=== PATIENT | male | born 1945 | race Caucasian/White ===

== ENCOUNTER → 2017-05-18 | Outpatient (CLI) | payer OTHER | LOC: FIMAGING 15:06 | PROVIDERS: ATTEND Internal Medicine | DX: R60.9 Edema, unspecified (principal); L03.116 Cellulitis of left lower limb; M10.9 Gout, unspecified ==

== ENCOUNTER 2017-06-05 10:30 | Emergency (ER) | payer OTHER ==
[2017-06-05 10:38] VITALS: TEMP 98.1
--- NOTE | 2017-06-05 11:06 | EDPHY ---
H & P Stated Complaint: Bruising/swelling R calf;recent inpt @ [facility] for gout vs cellulitis Time Seen by Provider: 06/05/17 11:02 HPI/ROS: HPI: This is a 72-year-old male who presents with Chief Complaint: Right calf swelling Location: Right calf Quality: Swelling Duration: 3 days Signs and Symptoms: + redness, + bruising, No shortness of breath, no chest pain, + bilateral lower extremity swelling chronic Timing: Rapid onset Severity: Moderate Context: Patient complains of bruising and swelling in his right calf since . He reports that he was in physical therapy and started to feel right calf muscle spasm. He stopped therapy and the cramps stop but then he noted bruising and swelling in the area. He was recently admitted for 10 days to [facility] for right lower extremity gout versus cellulitis; he received IV antibiotics.; discharged June 03, 2017. At discharge he was given 7 days of prednisone taper. History atrial fibrillation on Eliquis. He was able to walk out of his apartment and into the car using a walker. Modifying Factors: Comment: ROS: Constitutional: No fever, no chills, no weight loss Eyes: No blurred vision Respiratory: No shortness of breath, no cough Cardiovascular: No chest pain Gastrointestinal: No nausea, no vomiting no diarrhea Genitourinary: No dysuria Extremities: No myalgias Neurologic: No weakness, no numbness Skin: No rashes Hematologic: + bruising, no bleeding Source: Patient Exam Limitations: No limitations - Personal History Current Tetanus Diphtheria and Acellular Pertussis (TDAP): Unsure - Medical/Surgical History Hx Cardiac Disease: Yes Other PMH: afib. gout. peripheral neuropathy - Social History Smoking Status: Former smoker - Physical Exam Exam: CONSTITUTIONAL: Pleasant talkative nontoxic and elderly white male, awake and alert, no obvious distress HEENT: Atraumatic and normocephalic, PERRL, EOMI. Tympanic membranes clear. . Oropharynx clear, no exudate and moist pink mucosa. Airway patent. No lymphadenopathy. No meningismus. Cardiovascular: Normal S1/S2, regular rate, irregular rhythm, without murmur rub or gallop. PULMONARY/CHEST: Symmetrical and nontender. Clear to auscultation bilaterally Good air movement. No accessory muscle usage. ABDOMEN: Soft, nondistended, nontender, no rebound, no guarding, no peritoneal signs, no masses or organomegaly. No CVAT. EXTREMITIES: 2/2 pulses, right calf ecchymosis/mild redness with positive right calf pain. 1+ pitting edema noted at both ankles. Hyperpigmentation noted at bilateral ankles. Right ankle dorsiflexion and plantar flexion intact. Achilles intact. Right knee full range of motion; no effusion. no deformities, no clubbing, no cyanosis. NEUROLOGICAL: no focal neuro deficits. GCS 15. SKIN: Warm and dry, no erythema. no rash. Good capillary refill. Constitutional: Initial Vital Signs Temperature (C) 36.7 C 06/05/17 10:36 Heart Rate 101 H 06/05/17 10:36 Respiratory Rate 18 06/05/17 10:36 Blood Pressure 116/78 06/05/17 10:36 O2 Sat (%) 95 06/05/17 10:36 Allergies/Adverse Reactions: amoxicillin [Amoxicillin] Allergy (Mild, Verified 06/05/17 10:33) Rash Home Medications: Medication Instructions Recorded Allopurinol [Allopurinol 100 MG 100 mg PO DAILY 06/05/17 (*)] Apixaban [Eliquis] 5 mg PO BID 06/05/17 Atorvastatin Calcium [Lipitor 10 10 mg PO DAILY 06/05/17 mg (*)] Colchicine [Colchicine (*)] 0.6 mg PO 06/05/17 Digoxin [Lanoxin 125 mcg (RX)] 125 mcg PO DAILY10 06/05/17 Furosemide [Lasix] 40 mg PO 06/05/17 Gabapentin [Neurontin 300 MG (*)] 300 mg PO HS 06/05/17 Losartan Potassium [Cozaar] 100 mg PO 06/05/17 Metoprolol Succinate Xr [Toprol Xl 100 mg PO DAILY 06/05/17 100 mg (*)] Potassium Chloride [Klor-Con] 20 meq PO 06/05/17 Tadalafil [Cialis] 20 mg PO 06/05/17 predniSONE [predniSONE TAPER] 20 mg PO 06/05/17 Medical Decision Making - Diagnostics Imaging Results: Imaging Impressions Extremity Venous Study 06/05/17 11:01 Impression: 1. No deep venous thrombosis right leg. 2. Right medial calf 15 x 5 cm complex fluid collection which may represent hematoma or complex phlegmon/early abscess. Findings and recommendations discussed with Emergency Department, ENZO Yusuf, at 1207 hours on June 05, 2017. Final report concurs with initial preliminary interpretation. ED Course/Re-evaluation: Right lower extremity ultrasound ordered to evaluate for DVT ER executive legal secretary will call [facility] to obtain records from last admission to review 1230: Called by Radiology and ultrasound shows no DVT; does show complex fluid collection of 15 x 5 cm likely hematoma. No signs of neurovascular compromise/tenting of skin/compartment syndrome/ extremities and joints examined above and below area of concern and are neurovascularly intact/cellulitis/ischemia. Patient already has a walker at home hand has politely declined crutches. He politely declined splinting of right lower leg to immobilize. Patient relates that he follows with orthopedic surgery Dr. Arnold and wishes to follow up with him. We did discuss the possibility of a gastrocnemius strain/tear or Achilles strain. He was advised nonweightbearing on the right lower extremity and wrap with an Linwood wrap to compress. Patient has an etiology of injury and is on Eliquis which would explain the hematoma. Differential Diagnosis: Differential diagnosis includes deep venous thrombosis, gastrocnemius tear, Achilles tendon rupture, cellulitis, hematoma, peripheral vascular disease. Departure - Departure Disposition: Home, Routine, Self-Care Clinical Impression: Leg hematoma Qualifiers: Encounter type: initial encounter Laterality: right Qualified Code(s): S80.11XA - Contusion of right lower leg, initial encounter Condition: Good Instructions: Hematoma (ED) Additional Instructions: Please limit use of right lower extremity; observe nonweightbearing status; use crutches/walker, apply Linwood wrap to compress the area of concern. Keep follow-up appointment with primary care provider on Wednesday. Call orthopedist, Dr. Arnold, Wednesday for close follow-up appointment this week. Referrals: Marsha Meza MD [Primary Care Provider] - 2-3 days without fail (Go to appointment as previously scheduled on Wednesday)
[2017-06-05 13:06] VITALS: BP 120/81; PULSE 98; RESP 16; O2SAT 98
== END 2017-06-05 13:05 | disposition home or self-care (01) ==
DX: M79.81 Nontraumatic hematoma of soft tissue (principal); Z87.891 Personal history of nicotine dependence

== ENCOUNTER 2017-06-18 10:19 | Inpatient (IN) | payer OTHER ==
[2017-06-18] MEDS ORDERED: VANCOMYCIN HCL/NORMAL SALINE 250 ML IV ONE (12:00)
[2017-06-18] MEDS ORDERED: fentaNYL 100 MCG/2 ML INJ IVP ONE (12:02)
[2017-06-18] MEDS ORDERED: ONDANSETRON 4 MG/2 ML VIAL IVP ONE (12:02)
[2017-06-18 12:11] LABS: % IMMATURE GRANULYOCYTES 0.7 % (0.0-1.1); ABSOLUTE IMMATURE GRANULOCYTES 0.11 10^3/uL (0.00-0.10); ADD DIFF? NO; ADD MORPH? NO; ADD SCAN? NO; ATYPICAL LYMPHOCYTE FLAG 0 (0-99); FRAGMENT RBC FLAG 0 (0-99); HEMATOCRIT 36.8 % (40.0-51.0); HEMOGLOBIN 12.1 g/dL (13.7-17.5); LEFT SHIFT FLG 0 (0-99); LIPEMIA HEMOLYSIS FLAG 80 (0-99); MEAN CELL HEMOGLOBIN 30.6 pg (27.9-34.1); MEAN CELL HEMOGLOBIN CONCENTR. 32.9 g/dL (32.4-36.7); MEAN CELL VOLUME 93.2 fL (81.5-99.8); MEAN PLATELET VOLUME 9.3 fL (8.7-11.7); PLATELET CLUMPS FLAG 0 (0-99); PLATELET COUNT 241 10^3/uL (150-400); RED BLOOD CELL COUNT 3.95 10^6/uL (4.40-6.38); RED CELL DISTRIBUTION WIDTH 13.9 % (11.5-15.2)
[2017-06-18 12:18] LABS: ANION GAP 14 mEq/L (8-16); CALCIUM 10.7 mg/dL (8.5-10.4); CARBON DIOXIDE 23 mEq/l (22-31); CHLORIDE 97 mEq/L (97-110); CREATININE 1.2 mg/dL (0.7-1.3); GLOMERULAR FILTRATION RATE 60; GLUCOSE 113 mg/dL (70-100); POTASSIUM 4.6 mEq/L (3.5-5.2); SODIUM 134 mEq/L (134-144)
--- NOTE | 2017-06-18 12:20 | EDPHY ---
H & P Time Seen by Provider: 06/18/17 11:16 HPI/ROS: CHIEF COMPLAINT: Leg down, "gout" HISTORY OF PRESENT ILLNESS: The patient is a 72-year-old male with a history of peripheral neuropathy who presents to the emergency department ongoing bilateral lower extremity pain. Right is worse than his left. Patient states his symptoms started about 4 weeks ago. He has seen his primary care physician multiple times. He was ultimately diagnosed with gout. He has had an ultrasound of his right lower extremity which was negative. Patient states he has increasing redness and pain. He does not noted fever or chills. No recent trauma. REVIEW OF SYSTEMS: My complete review of systems is negative except as mentioned in the HPI. Past Medical/Surgical History: Atrial fibrillation, gout, peripheral neuropathy Smoking Status: Former smoker Physical Exam: 36.7, 102/80, 106, 16, 95% on room air GENERAL: W mild acute pain distress, alert. HEENT: Eyes normal to inspection, normal pharynx, no signs of dehydration. NECK: No thyromegaly, no lymphadenopathy, supple. RESPIRATORY: Clear to auscultation bilaterally, no rales, rhonchi or wheezing. CVS: Regular rate and rhythm, no rubs, murmurs, or gallops. ABDOMEN: Soft, nontender, nondistended, no organomegaly. BACK: Normal to inspection, no CVA tenderness. SKIN: Normal color, no rash, warm, dry. No pallor. EXTREMITIES: The patient has a swollen right lower extremity. It is tender to touch. It is fairly tense. There is erythema extending to the upper calf. Patient's left lower extremity has a small patch of redness under the medial malleolus. NEURO/PSYCH: Alert and oriented, normal mood and affect, normal motor sensory exam. Constitutional: Initial Vital Signs Temperature (C) 36.7 C 06/18/17 10:19 Heart Rate 106 H 06/18/17 10:19 Respiratory Rate 16 06/18/17 10:19 Blood Pressure 102/80 06/18/17 10:19 O2 Sat (%) 95 06/18/17 10:19 O2 Delivery Mode Room Air Allergies/Adverse Reactions: amoxicillin [Amoxicillin] Allergy (Mild, Verified 06/05/17 10:33) Rash Penicillins Allergy (Verified 06/18/17 14:19) Rash Home Medications: Medication Instructions Recorded Allopurinol [Allopurinol 100 MG 100 mg PO DAILY 06/05/17 (*)] Atorvastatin Calcium [Lipitor 10 10 mg PO HS 06/05/17 mg (*)] Furosemide [Lasix] 40 mg PO Q2D@09 06/05/17 Gabapentin [Neurontin 300 MG (*)] 300 mg PO HS 06/05/17 Losartan Potassium [Cozaar] 100 mg PO DAILY 06/05/17 Metoprolol Succinate Xr [Toprol Xl 100 mg PO DAILY 06/05/17 100 mg (*)] Tadalafil [Cialis] 20 mg PO Q48H 06/05/17 Acetaminophen [Tylenol ES 500 mg 1,000 mg PO HS 06/18/17 (*)] Cephalexin [Keflex (*)] 500 mg PO QID 06/18/17 Colchicine [Colchicine (*)] 0.6 mg PO DAILY PRN 06/18/17 Digoxin [Lanoxin 250 mcg (RX)] 250 mcg PO MOTUWETHFRSA@09 06/18/17 Herbals/Supplements -Info Only 1 ea PO DAILY 06/18/17 Multivitamins [Multivitamin (*)] 1 each PO DAILY 06/18/17 [place]-3 Fatty Acids [Fish Oil 1000 1,000 mg PO DAILY 06/18/17 mg (*)] traMADol [Ultram 50 mg (*)] 50 mg PO Q4 PRN 06/18/17 Medical Decision Making - Diagnostics Imaging Results: Imaging Impressions Extremity Venous Study 06/18/17 12:04 Impression: 1. There is no sonographic evidence of deep or superficial vein thrombosis in the right lower extremity. 2. There has been an interval increase in the size of the previously-noted hematoma, although it appears more seromatous (liquefied), with some minimal debris (superimposed infection is not excluded). Findings were discussed with MARIVEL ALVES MD at 13:08, on 06/18/2017. ED Course/Re-evaluation: In the emergency department I discussed the plan with the patient. I answered all of his questions. Based on the redness and swelling in the leg an IV was placed. Laboratory studies including cultures were obtained. An ultrasound of the right lower extremity was ordered. The patient was given Rocephin 1 g IV and vancomycin 1 g IV after cultures were drawn. [place] [address]. Patient's lactate was normal. I discussed the case with the hospitalist service. Dr. Ahmadi will admit. Ultrasound: Please refer the dictated report. Patient has a large fluid collection. This is increased in size from his previous ultrasound. I discussed the case with Dr. Hanks from General surgery. He will consult on the patient to evaluate for possible abscess formation. Differential Diagnosis: My differential includes but is not limited to cellulitis, abscess, DVT, vascular occlusion, bacteremia, sepsis - Data Points Laboratory Results: Laboratory Results 06/18/17 10:20 06/18/17 10:20 06/18/17 06/18/17 06/18/17 11:53 10:20 10:20 WBC 15.43 10^3/uL H 10^3/uL (3.80-9.50) RBC 3.95 10^6/uL L 10^6/uL (4.40-6.38) Hgb 12.1 g/dL L g/dL (13.7-17.5) Hct 36.8 % L % (40.0-51.0) MCV 93.2 fL fL (81.5-99.8) MCH 30.6 pg pg (27.9-34.1) MCHC 32.9 g/dL g/dL (32.4-36.7) RDW 13.9 % % (11.5-15.2) Plt Count 241 10^3/uL 10^3/uL (150-400) MPV 9.3 fL fL (8.7-11.7) Neut % (Auto) 84.2 % H % (39.3-74.2) Lymph % (Auto) 6.4 % L % (15.0-45.0) [place] % (Auto) 7.6 % % (4.5-13.0) Eos % (Auto) 0.8 % % (0.6-7.6) Baso % (Auto) 0.3 % % (0.3-1.7) Nucleat RBC Rel Count 0.0 % % (0.0-0.2) Absolute Neuts (auto) 12.99 10^3/uL H 10^3/uL (1.70-6.50) Absolute Lymphs (auto) 0.99 10^3/uL L 10^3/uL (1.00-3.00) Absolute Monos (auto) 1.17 10^3/uL H 10^3/uL (0.30-0.80) Absolute Eos (auto) 0.13 10^3/uL 10^3/uL (0.03-0.40) Absolute Basos (auto) 0.04 10^3/uL 10^3/uL (0.02-0.10) Absolute Nucleated RBC 0.00 10^3/uL 10^3/uL (0-0.01) Immature Gran % 0.7 % % (0.0-1.1) Immature Gran # 0.11 10^3/uL H 10^3/uL (0.00-0.10) VBG Lactic Acid 1.4 mmol/L mmol/L (0.7-2.1) Sodium 134 mEq/L mEq/L (134-144) Potassium 4.6 mEq/L mEq/L (3.5-5.2) Chloride 97 mEq/L mEq/L (97-110) Carbon Dioxide 23 mEq/l mEq/l (22-31) Anion Gap 14 mEq/L mEq/L (8-16) BUN 27 mg/dL H mg/dL (7-23) Creatinine 1.2 mg/dL mg/dL (0.7-1.3) Estimated GFR 60 Glucose 113 mg/dL H mg/dL (70-100) Calcium 10.7 mg/dL H mg/dL (8.5-10.4) Phosphorus 3.0 mg/dL mg/dL (2.5-4.5) Medications Given: Discontinued Medications Fentanyl (Sublimaze) 100 mcg IVP EDNOW ONE Stop: 06/18/17 12:03 Last Admin: 06/18/17 12:18 Dose: 100 mcg Ceftriaxone Sodium/Dextrose (Rocephin 1 Gm (Premix)) 50 mls @ 100 mls/hr IV EDNOW ONE PRN Reason: Protocol Stop: 06/18/17 12:29 Last Admin: 06/18/17 12:17 Dose: 50 mls Vancomycin/Sodium Chloride (Vancomycin 1 Gm (Premix)) 250 mls @ 250 mls/hr IV EDNOW ONE PRN Reason: Protocol Stop: 06/18/17 12:59 Last Admin: 06/18/17 12:56 Dose: 250 mls Ondansetron HCl (Zofran) 4 mg IVP EDNOW ONE Stop: 06/18/17 12:03 Last Admin: 06/18/17 12:19 Dose: 4 mg Departure - Departure Disposition: [facility] Acute Clinical Impression: Cellulitis Qualifiers: Site of cellulitis: extremity Site of cellulitis of extremity: lower extremity Laterality: right Qualified Code(s): L03.115 - Cellulitis of right lower limb Condition: Good
[2017-06-18] MEDS ORDERED: ONDANSETRON 4 MG/2 ML VIAL IVP PRN (15:57)
[2017-06-18] MEDS ORDERED: oxyCODONE IR 5 MG TAB PO PRN (15:57)
[2017-06-18] MEDS ORDERED: ONDANSETRON DISINTEGRATING 4 MG TAB PO PRN (15:57)
--- NOTE | 2017-06-18 16:06 | GCON ---
[f rep st] CONSULTATION REFERRING PHYSICIAN: I have been asked to see the patient in consultation by in the emergency department in regard to right leg cellulitis, possible abscess. HISTORY OF PRESENT ILLNESS: This 72-year-old male underwent some type of trauma to the right leg 3 w eeks ago while he was on Eliquis. He developed a hematoma, which underwent an ultrasound test at [facility] facility. He now presents with increasing pain and redness in the right lower extremity, as well a s a small patch along the left medial malleolus, actually fairly distant from the area in the calf wh ere he apparently had his hematoma in the past. An ultrasound was done to rule out DVT, and incident ally noted was a 10 x 5 cm area of fluid, which was felt to be liquefaction of the previous hematoma, and the question was raised as to whether this could be infected fluid driving the cellulitis, or un related fluid. HISTORY: The patient is a very poor historian in regard to medications, chronology of his trauma, et c., although he states that there was a bigger hematoma in this area 3 weeks ago, which has steadily improved. PHYSICAL EXAM: Elderly male, ecchymosis in the right medial thigh and swelling of the right posterio r calf without erythema. All the erythema is more distal and centered more from the ankle up. Palpa tion of the posterior calf shows 1 area, which is fairly soft, which is assumed to be the area of flu id collection. The skin was prepped with soap, and a 21-gauge needle aspirated old blood. This was sent for Gram st ain and culture. It has a benign appearance. However, obviously there could be bacteria within. ASSESSMENT: I feel the fluid collection in the posterior calf, which is fairly nontender and shrinki ng in size, is unlikely to be driving the erythema, which is not centered about this area. We will a wait the Gram stain and culture results, but I do not think drainage of this area is necessary. The patient also states he stopped his Eliquis a day or 2 ago. /[id number]/MODL
[2017-06-18] MEDS: Tadalafil [Cialis] 20 MG PO SCH (16:45)
--- NOTE | 2017-06-18 16:50 | GHP ---
[f rep st] HISTORY AND PHYSICAL DATE OF ADMISSION: 06/18/2017 CHIEF COMPLAINT: Right lower extremity swelling, pain, and redness. HISTORY OF PRESENT ILLNESS: This is a 72-year-old male with a history of gout, who presents with rig ht lower extremity swelling and redness. He was discharged from [place] [facility] about 2 weeks ago where he was treated with a gout attack with prednisone, colchicine, and allopurinol. He says that his gout a ttack had initially resolved. Sometime after this, he noticed that his right leg became very swollen . He is on Eliquis. He has seen his orthopedic surgeon, primary care physician, as well as his card iologist in the meantime. He had an ultrasound of his leg done 2 weeks ago, which did show a complex fluid collection at that time. He is unsure if he has been on antibiotics though Keflex is on his m edication list. He notes that he has pain and redness. It is unclear if the redness is getting bett er or worse. He actually tells me it has been getting better. He has not had any real fevers at [facility]. He had been told by his inspector materials and processes to stop Eliquis in the interim as there was concern that thi s was a hematoma. He presents today with worsening pain in his leg. PAST MEDICAL/SURGICAL HISTORY: 1. Atrial fibrillation. 2. Gout. 3. Peripheral neuropathy. MEDICATIONS: Please see medication reconciliation. ALLERGIES: Amoxicillin and penicillin. FAMILY HISTORY: Reviewed and noncontributory. SOCIAL HISTORY: He does not smoke. REVIEW OF SYSTEMS: A 10-point review of systems is conducted and is negative except per HPI. PHYSICAL EXAMINATION: VITAL SIGNS: Blood pressure is 130/70, heart rate has been between 106 to 116 , respiration rate 16, saturating at 92% on room air. Temperature max is 37.5. GENERAL: The patien jayden is a pleasant man who appears somewhat uncomfortable. HEENT: Shows him to be normocephalic, atrau matic. CARDIOVASCULAR: Regular rate and rhythm. No murmurs, rubs, or gallops. PULMONARY: Lungs c lear to auscultation bilaterally. ABDOMEN: Soft, nontender, nondistended. SKIN: No rash. : Ex am shows no Wall. NEUROLOGIC: Shows him to be alert and oriented x3, moving all extremities. PSYC HIATRIC: Exam shows normal mood and affect. EXTREMITIES: Shows right lower extremity to be signifi cantly edematous and erythematous. It is warm to the touch. The erythema is mostly over the anterio r lindquist. It does have a little bit of fluctuance surrounding the calf. LABORATORY DATA: CBC shows a white count of 15.43, hemoglobin is 12, platelets are 241. Lactate is 1.4. BUN is 27, creatinine 1.2. Calcium 10.7. DATA: 1. I discussed this with Dr. Henriquez. 2. I reviewed his extremity venous ultrasound that shows an increase in the size of fluid collection in his right calf. He does have some minimal debris. IMPRESSION/PLAN: This is a 72-year-old man who presents with cellulitis, possible abscess. 1. Right lower extremity cellulitis/abscess: Dr. Henriquez has been consulted. He did a bedside as piration of this fluid. This will be sent off for Gram stain and culture. In the interim, he will b e treated for cellulitis. This fluid did not appear purulent, thus I will treat him for a non-methic illin-resistant Staph aureus soft tissue infection with Ancef. We will follow his clinical course cl osely. I have marked the site. I recommend keeping his leg elevated. 2. Atrial fibrillation: Currently rate controlled. We will continue his metoprolol. I have held h is Eliquis. We will also continue digoxin. 3. Gout: Unsure if he is currently having a flare. We will continue his colchicine and allopurinol now. 4. Hypertension: We will hold his Cozaar. 5. Code status: Full, but would not want prolonged measures. 6. Venous thromboembolism risk is moderate but would not want to put SCDs on that leg and would not want to give him Lovenox, given that likely had the hematoma. /[id number]/MODL
[2017-06-18] MEDS: GABAPENTIN 300 MG CAP PO SCH (23:39)
[2017-06-18] MEDS: ACETAMINOPHEN 500 MG TAB PO SCH (23:40)
[2017-06-18] MEDS: ATORVASTATIN CALCIUM 10 MG TAB PO SCH (23:40)
[2017-06-19 05:19] LABS: % IMMATURE GRANULYOCYTES 0.5 % (0.0-1.1); ABSOLUTE IMMATURE GRANULOCYTES 0.06 10^3/uL (0.00-0.10); ADD DIFF? NO; ADD MORPH? NO; ADD SCAN? NO; ATYPICAL LYMPHOCYTE FLAG 20 (0-99); FRAGMENT RBC FLAG 0 (0-99); HEMATOCRIT 33.4 % (40.0-51.0); HEMOGLOBIN 10.6 g/dL (13.7-17.5); LEFT SHIFT FLG 0 (0-99); LIPEMIA HEMOLYSIS FLAG 80 (0-99); MEAN CELL HEMOGLOBIN 29.8 pg (27.9-34.1); MEAN CELL HEMOGLOBIN CONCENTR. 31.7 g/dL (32.4-36.7); MEAN CELL VOLUME 93.8 fL (81.5-99.8); MEAN PLATELET VOLUME 9.2 fL (8.7-11.7); PLATELET CLUMPS FLAG 0 (0-99); PLATELET COUNT 194 10^3/uL (150-400); RED BLOOD CELL COUNT 3.56 10^6/uL (4.40-6.38); RED CELL DISTRIBUTION WIDTH 14.1 % (11.5-15.2)
[2017-06-19 05:35] LABS: ALANINE AMINOTRANSFERASE 40 IU/L (21-72); ALBUMIN 2.4 g/dL (3.5-5.0); ALKALINE PHOSPHATASE 99 IU/L (38-126); ANION GAP 9 mEq/L (8-16); ASPARTATE AMINOTRANSFERASE 30 IU/L (17-59); BILIRUBIN,TOTAL 1.4 mg/dL (0.1-1.4); CALCIUM 10.4 mg/dL (8.5-10.4); CARBON DIOXIDE 23 mEq/l (22-31); CHLORIDE 101 mEq/L (97-110); CREATININE 1.1 mg/dL (0.7-1.3); GLOMERULAR FILTRATION RATE > 60; GLUCOSE 113 mg/dL (70-100); POTASSIUM 4.3 mEq/L (3.5-5.2); SODIUM 133 mEq/L (134-144); TOTAL PROTEIN 5.4 g/dL (6.3-8.2)
[2017-06-19] MEDS: OMEGA-3 FATTY ACIDS 1,000 MG CAP PO SCH (09:24)
[2017-06-19] MEDS: DIGOXIN 250 MCG TAB PO SCH (09:25)
[2017-06-19] MEDS: ALLOPURINOL 100 MG TAB PO SCH (09:25)
[2017-06-19] MEDS: METOPROLOL SUCCINATE XR 100 MG TAB PO SCH (09:25)
[2017-06-19] MEDS: ACETAMINOPHEN 325 MG TAB PO PRN ×2 (11:39→16:35)
[2017-06-19] MEDS ORDERED: NS 500 ML IV ONE (13:38)
[2017-06-19] MEDS ORDERED: NS 1,000 ML IV SCH (13:45)
--- NOTE | 2017-06-19 13:47 | HOSPPROG ---
Hospitalist Progress Note Assessment/Plan: # RLE cellulitis - will treat with ancef and follow clinical course - slightly improved today # RLE hematoma - culture from this negative so far - follow; holding eliquis # acute gout, L knee - will treat with prednisone - doubt septic arthritis since this knee was aspirated about 2 weeks ago at [place] and showed MSU crystals - cont colchicine and allopurinol # tachycardia - may be related to borderline fever - will run IVF for the next 24 hours - hold lasix # a-fib - cont metop, digoxin; hold eliquis Subjective: L knee feels worse; less pain over RLE Objective: Vital Signs Temp Pulse Resp BP Pulse Ox 37.7 C 113 H 18 119/76 95 06/19/17 11:54 06/19/17 11:54 06/19/17 11:54 06/19/17 11:54 06/19/17 11:54 Microbiology 06/18/17 15:40 Gram Stain - Final Leg - Swab Laboratory Results 06/19/17 04:54 06/19/17 04:50 06/18/17 06/19/17 06/20/17 05:59 05:59 05:59 Intake Total 440 Output Total 475 Balance -35 high risk given the extent of his cellulitis ICD10 Worksheet Patient Problems: Problems Problem Status Onset Cellulitis Acute
[2017-06-19] MEDS: predniSONE 20 MG TAB PO SCH (14:09)
--- NOTE | 2017-06-19 14:43 | ASMTCMCOM ---
CM Note CM Note Notes: Pt. is a 72-year-old man admitted w/ R lower leg cellulitis. Hx. gout, Afib, and peripheral neuropathy. Pt. on IV antibiotics. Pt. appears to live alone, daughter listed in contacts. CM to follow for d/c needs. Date Signed: 06/19/2017 02:42 PM Electronically Signed By:Jocy Smith LCSW
[2017-06-19] MEDS: traMADol 50 MG TAB PO PRN (16:34)
[2017-06-19] MEDS: ATORVASTATIN CALCIUM 10 MG TAB PO SCH (20:19)
[2017-06-19] MEDS: ACETAMINOPHEN 500 MG TAB PO SCH (20:19)
[2017-06-19] MEDS: GABAPENTIN 300 MG CAP PO SCH (20:19)
[2017-06-20 05:33] LABS: ABSOLUTE IMMATURE GRANULOCYTES 0.11 10^3/uL (0.00-0.10); ADD DIFF? NO; ADD MORPH? NO; ADD SCAN? NO; ATYPICAL LYMPHOCYTE FLAG 20 (0-99); FRAGMENT RBC FLAG 0 (0-99); HEMATOCRIT 31.5 % (40.0-51.0); LEFT SHIFT FLG 0 (0-99); LIPEMIA HEMOLYSIS FLAG 80 (0-99); MEAN CELL HEMOGLOBIN 29.8 pg (27.9-34.1); MEAN CELL HEMOGLOBIN CONCENTR. 31.7 g/dL (32.4-36.7); MEAN CELL VOLUME 93.8 fL (81.5-99.8); MEAN PLATELET VOLUME 9.3 fL (8.7-11.7); PLATELET CLUMPS FLAG 0 (0-99); PLATELET COUNT 197 10^3/uL (150-400); RED BLOOD CELL COUNT 3.36 10^6/uL (4.40-6.38); RED CELL DISTRIBUTION WIDTH 13.5 % (11.5-15.2)
[2017-06-20 06:03] LABS: ANION GAP 8 mEq/L (8-16); CALCIUM 9.7 mg/dL (8.5-10.4); CARBON DIOXIDE 26 mEq/l (22-31); CHLORIDE 104 mEq/L (97-110); CREATININE 0.8 mg/dL (0.7-1.3); GLOMERULAR FILTRATION RATE > 60; GLUCOSE 239 mg/dL (70-100); POTASSIUM 5.5 mEq/L (3.5-5.2); SODIUM 138 mEq/L (134-144)
[2017-06-20] MEDS ORDERED: FUROSEMIDE 40 MG TAB PO SCH (09:00)
[2017-06-20] MEDS: predniSONE 20 MG TAB PO SCH (09:07)
[2017-06-20] MEDS: OMEGA-3 FATTY ACIDS 1,000 MG CAP PO SCH (09:08)
[2017-06-20] MEDS: METOPROLOL SUCCINATE XR 100 MG TAB PO SCH (09:08)
[2017-06-20] MEDS: ALLOPURINOL 100 MG TAB PO SCH (09:08)
[2017-06-20] MEDS: ACETAMINOPHEN 325 MG TAB PO PRN (09:08)
--- NOTE | 2017-06-20 12:29 | HOSPPROG ---
Hospitalist Progress Note Assessment/Plan: # RLE cellulitis - will treat with ancef and follow clinical course - improving, still needs IV abx # RLE hematoma - culture from this negative so far - follow; holding eliquis # L knee effusion - likely gout but still extremely painful - cont pred, colchicine and allopurinol - aspirate knee today, send for GS/cx and crystals # tachycardia - better after fluids - hold lasix, stop fluids # a-fib - cont metop, digoxin; hold eliquis Subjective: R leg less painful; L knee still very painful Objective: Vital Signs Temp Pulse Resp BP Pulse Ox 36.6 C 83 18 135/65 H 96 06/20/17 11:47 06/20/17 11:47 06/20/17 11:47 06/20/17 11:47 06/20/17 11:47 Laboratory Results 06/20/17 05:04 06/20/17 05:04 06/19/17 06/20/17 06/21/17 05:59 05:59 05:59 Intake Total 275 Output Total 750 Balance -475 - Physical Exam Constitutional: no apparent distress, appears nourished Cardiovascular: regular rate and rhythym, no murmur, rub, or gallop Respiratory: no respiratory distress, no rales or rhonchi, clear to auscultation Gastrointestinal: normoactive bowel sounds, soft, non-tender abdomen, no palpable masses Musculoskeletal: other (RLE with decreasing erythema overall; L knee with ongoing effusion) ICD10 Worksheet Patient Problems: Problems Problem Status Onset Cellulitis Acute
[2017-06-20] MEDS ORDERED: LIDOCAINE 1% 300 MG/30 ML SDV ONE (15:13)
--- NOTE | 2017-06-20 15:25 | ASMTCMCOM ---
CM Note CM Note Notes: Chart reviewed, per PT and OT, SNF/Rehab recommended, Met with patient to discuss dc poc. He understands he may need rehab when he is medically able to discharge and is agreeable to rehab. Patient provided options within [place] and surrounding area. He would like to go to [facility] in [place]. Referal to [facility] made awaiting response. CM will follow. Date Signed: 06/20/2017 03:24 PM Electronically Signed By:Paulina Allison RN
[2017-06-20] MEDS: Tadalafil [Cialis] 20 MG PO SCH (16:54)
[2017-06-20] MEDS: ATORVASTATIN CALCIUM 10 MG TAB PO SCH (20:05)
[2017-06-20] MEDS: GABAPENTIN 300 MG CAP PO SCH (20:05)
[2017-06-20] MEDS: ACETAMINOPHEN 500 MG TAB PO SCH (20:05)
[2017-06-21 05:27] LABS: % IMMATURE GRANULYOCYTES 1.1 % (0.0-1.1); ABSOLUTE IMMATURE GRANULOCYTES 0.16 10^3/uL (0.00-0.10); ADD DIFF? NO; ADD MORPH? YES; ADD SCAN? NO; ATYPICAL LYMPHOCYTE FLAG 20 (0-99); FRAGMENT RBC FLAG 0 (0-99); HEMATOCRIT 21.9 % (40.0-51.0); LEFT SHIFT FLG 0 (0-99); LIPEMIA HEMOLYSIS FLAG 80 (0-99); MEAN CELL HEMOGLOBIN 29.5 pg (27.9-34.1); MEAN CELL HEMOGLOBIN CONCENTR. 31.5 g/dL (32.4-36.7); MEAN CELL VOLUME 93.6 fL (81.5-99.8); MEAN PLATELET VOLUME 9.9 fL (8.7-11.7); PLATELET CLUMPS FLAG 0 (0-99); PLATELET COUNT 266 10^3/uL (150-400); RED BLOOD CELL COUNT 2.34 10^6/uL (4.40-6.38); RED CELL DISTRIBUTION WIDTH 13.5 % (11.5-15.2)
[2017-06-21 05:29] LABS: HEMOGLOBIN 6.9 g/dL (13.7-17.5)
[2017-06-21 05:43] LABS: ANION GAP 9 mEq/L (8-16); CALCIUM 9.9 mg/dL (8.5-10.4); CARBON DIOXIDE 25 mEq/l (22-31); CHLORIDE 104 mEq/L (97-110); CREATININE 0.8 mg/dL (0.7-1.3); GLOMERULAR FILTRATION RATE > 60; GLUCOSE 203 mg/dL (70-100); POTASSIUM 4.5 mEq/L (3.5-5.2); SODIUM 138 mEq/L (134-144)
[2017-06-21 05:56] LABS: PLATELET ESTIMATE ADEQUATE (ADEQ); POLYCHROMASIA 1+
[2017-06-21] MEDS: predniSONE 20 MG TAB PO SCH (08:00)
[2017-06-21] MEDS: METOPROLOL SUCCINATE XR 100 MG TAB PO SCH (08:00)
[2017-06-21] MEDS: DIGOXIN 250 MCG TAB PO SCH (08:00)
[2017-06-21] MEDS: ALLOPURINOL 100 MG TAB PO SCH (08:00)
[2017-06-21] MEDS: OMEGA-3 FATTY ACIDS 1,000 MG CAP PO SCH (08:01)
[2017-06-21] MEDS ORDERED: ENOXAPARIN 40 MG/0.4 ML SYR SC SCH (09:00)
[2017-06-21] MEDS: ACETAMINOPHEN 325 MG TAB PO PRN (11:41)
[2017-06-21 12:02] LABS: HEMATOCRIT 33.1 % (40.0-51.0); HEMOGLOBIN 10.7 g/dL (13.7-17.5)
--- NOTE | 2017-06-21 13:46 | ASMTCMCOM ---
CM Note CM Note Notes: [facility] will not have a bed until the end of this week. CM recommended that pt selects another SNF facility as a safety net. Pt would like CM to make a referral to [facility]. CM faxed referral. CM provided pt information on [facility] as requested. Date Signed: 06/21/2017 01:45 PM Electronically Signed By:SUZIE Mcdowell
--- NOTE | 2017-06-21 14:37 | HOSPPROG ---
Hospitalist Progress Note Assessment/Plan: 72 y male with c/o rle redness. First encounter, chart reviewed. # RLE cellulitis - will treat with ancef and follow clinical course - improving, still needs IV abx -possibly 1-2 more days # RLE hematoma - culture from this negative so far - follow; holding eliquis -repeat US unchanged # L knee effusion - likely gout but still extremely painful - cont pred, colchicine and allopurinol - aspirated knee, sent for GS/cx, no crystals # tachycardia - better after fluids - hold lasix, stop fluids -follow # a-fib - cont metop, digoxin; hold eliquis # anemia -false lab reading -repeat labs stable -held lovenox, restart soon #Dispo - will need snf -1-2 more days of therapy then po abx -d/w CM Subjective: Feeling tired today. Slept well last night. Still having some pain. Objective: Vital Signs Temp Pulse Resp BP Pulse Ox 36.5 C 88 18 153/102 H 96 06/21/17 07:43 06/21/17 12:08 06/21/17 12:08 06/21/17 12:08 06/21/17 12:08 Microbiology 06/20/17 14:00 Gram Stain - Final Knee - Aspirate Laboratory Results 06/21/17 11:50 06/21/17 04:40 06/20/17 06/21/17 06/22/17 05:59 05:59 05:59 Intake Total 275 Output Total 750 250 Balance -475 -250 - Physical Exam Constitutional: appears nourished, chronically ill appearing, uncomfortable Eyes: PERRL, anicteric sclera, EOMI Ears, Nose, Mouth, Throat: moist mucous membranes, hearing normal, ears appear normal Cardiovascular: regular rate and rhythym, No JVD, No edema Respiratory: no respiratory distress, no rales or rhonchi, reduced air movement Gastrointestinal: No tenderness, No ascites, No guarding Skin: warm, no induration, erythema Musculoskeletal: no joint effusions, pain with ROM, generalized weakness Neurologic: AAOx3 Psychiatric: interacting appropriately, not anxious, not encephalopathic, thought process linear ICD10 Worksheet Patient Problems: Problems Problem Status Onset Cellulitis Acute
[2017-06-21] MEDS: GABAPENTIN 300 MG CAP PO SCH (20:15)
[2017-06-21] MEDS: ACETAMINOPHEN 500 MG TAB PO SCH (20:15)
[2017-06-21] MEDS: ATORVASTATIN CALCIUM 10 MG TAB PO SCH (20:15)
[2017-06-22] MEDS: DIGOXIN 250 MCG TAB PO SCH (09:29)
[2017-06-22] MEDS: predniSONE 20 MG TAB PO SCH (09:30)
[2017-06-22] MEDS: OMEGA-3 FATTY ACIDS 1,000 MG CAP PO SCH (09:30)
[2017-06-22] MEDS: ALLOPURINOL 100 MG TAB PO SCH (09:30)
[2017-06-22] MEDS: METOPROLOL SUCCINATE XR 100 MG TAB PO SCH (09:30)
[2017-06-22] MEDS: traMADol 50 MG TAB PO PRN ×3 (09:36→21:51)
[2017-06-22] MEDS: COLCHICINE 0.6 MG CAP/TAB PO PRN (09:40)
--- NOTE | 2017-06-22 10:35 | HOSPPROG ---
Hospitalist Progress Note Assessment/Plan: 72 y male with c/o rle redness. First encounter, chart reviewed. # RLE cellulitis - will treat with ancef and follow clinical course - improving, still needs IV abx # RLE hematoma - culture from this negative so far - follow; holding eliquis -repeat US unchanged -ordered ice prn # L knee effusion/supratellar - gout but still extremely painful - cont pred, colchicine and allopurinol - aspirated knee, + crystals - per patient is worse/ will ask orthopedics to see (spoke with Dr Ventura) # tachycardia - none today - hold lasix, stop fluids -follow # a-fib - cont metop, digoxin; hold eliquis # anemia -false lab reading -repeat labs stable #dvt prophylaxis: LMWH on hold/ has a significant hematoma on right leg area #Dispo -need SNF -ask ortho to see to weigh in on left knee/ will not drain hematoma at this time/ should resolve w tme Subjective: Louis said he is having significant pain to his left knee/ right leg is not that painful. Objective: Vital Signs Temp Pulse Resp BP Pulse Ox 36.9 C 80 20 135/86 H 96 06/22/17 07:42 06/22/17 09:29 06/22/17 07:42 06/22/17 07:42 06/22/17 07:42 Microbiology 06/20/17 14:00 Gram Stain - Final Knee - Aspirate Laboratory Results 06/21/17 11:50 06/21/17 04:40 06/21/17 06/22/17 06/23/17 05:59 05:59 05:59 Intake Total 150 Output Total 1000 Balance -850 - Physical Exam Constitutional: uncomfortable Eyes: PERRL Ears, Nose, Mouth, Throat: hearing normal Cardiovascular: irregularly irregular Respiratory: no respiratory distress Skin: warm, other (left knee with palpable effusion/ right calf swollen/ right knee, r upper thigh area with significant ecchymosis) Musculoskeletal: muscular tenderness, generalized weakness Neurologic: AAOx3 Psychiatric: interacting appropriately ICD10 Worksheet Patient Problems: Problems Problem Status Onset Cellulitis Acute
[2017-06-22] MEDS: ACETAMINOPHEN 325 MG TAB PO PRN ×2 (12:01→16:13)
--- NOTE | 2017-06-22 12:13 | ASMTCMCOM ---
CM Note CM Note Notes: CM spoke w/ BLADIMIR Mckeon regarding d/c POC. CM spoke w/ Lois at [facility] and anticipates having a bed for pt when he is medically stable to d/c. Pt is agreeable to going to [facility]. Pt was declined at [facility] due to his insurance. CM to follow. Date Signed: 06/22/2017 12:12 PM Electronically Signed By:SUZIE Mcdowell
[2017-06-22] MEDS: Tadalafil [Cialis] 20 MG PO SCH (15:32)
[2017-06-22] MEDS: ATORVASTATIN CALCIUM 10 MG TAB PO SCH (21:51)
[2017-06-22] MEDS: GABAPENTIN 300 MG CAP PO SCH (21:52)
[2017-06-22] MEDS: ACETAMINOPHEN 500 MG TAB PO SCH (21:52)
--- NOTE | 2017-06-23 03:02 | GCON ---
[f rep st] CONSULTATION ORTHOPEDIC CONSULTATION DATE OF CONSULTATION: 06/22/2017 REASON FOR CONSULTATION: Left knee gout. HISTORY OF PRESENT ILLNESS: The patient is a pleasant 72-year-old male with a history of gout, who p resented to the emergency department on June 18 with warmth and swelling about the right lower e xtremity. I did have a fluid collection on an ultrasound for a DVT, which was aspirated, which was n egative for bacteria, and he is now being treated with cellulitis. He has also had left knee swellin g. This is the second attack of gout. He was initially treated with steroid, allopurinol, and colch icine. Initially got better, however, the left knee pain has resumed. He has been restarted on thos e medicines and he now reports today, this afternoon that his pain is finally starting to improve. PRIOR MEDICAL HISTORY: Atrial fibrillation, gout, peripheral neuropathy. MEDICATIONS: Please see attached med rec. ALLERGIES: Amoxicillin and penicillin. SOCIAL HISTORY: Occasional alcohol. He does not smoke. Lives here in town with his . REVIEW OF SYSTEMS: Other than right lower extremity warmth and swelling is unremarkable except for t he left knee pain and swelling as well. PHYSICAL EXAM: VITAL SIGNS: Today at the bedside, blood pressure is 121/77, heart rate is 95, respi ratory rate is 16, oxygen saturation is 94% on 2 L, temperature is 36.8. LABORATORY DATA: The aspirate from his knee showed 3+ polys, no organisms, positive for uric acid cr ystals. ASSESSMENT: Gout flare, left knee. PLAN: The patient and I spent 15 minutes [id number] time reviewing the aspiration results. His cl inical course, he is now starting to show some improvement this afternoon. He will continue current treatment for the gout. He will continue the home medications to try and suppress future gout attack s. Followup will be p.r.n. He does have an orthopedist he has seen in the past and he can continue to followup care with that orthopedist. /[id number]/MODL
[2017-06-23] MEDS: traMADol 50 MG TAB PO PRN ×2 (03:18→09:21)
--- NOTE | 2017-06-23 08:52 | HOSPPROG ---
Hospitalist Progress Note Assessment/Plan: 72 y male with c/o rle redness. Reviewed his care with Dr Roger Millan with cardiology. Appreciate his input. Will hold Eliquis at ut and the [place] [facility] will see him in 2 weeks for further evaluation. # RLE cellulitis - will treat with ancef and follow clinical course - improving, still needs IV abx # RLE hematoma - culture from this negative so far - follow; holding eliquis -repeat US unchanged -ordered ice prn # L knee effusion/supratellar - gout but still extremely painful - cont pred, colchicine and allopurinol - aspirated knee, + crystals - appreciate Dr Ventura # tachycardia - none today - hold lasix, stop fluids -follow # a-fib - cont metop, digoxin; hold eliquis # anemia -false lab reading -repeat labs stable #dvt prophylaxis: LMWH on hold/ has a significant hematoma on right leg area #Dispo -need SNF/ has been accepted to [facility]/ [place] today or tomorrow. Subjective: Thony is feeling better today/ mobilizing a bit more. Objective: Vital Signs Temp Pulse Resp BP Pulse Ox 36.6 C 80 16 121/76 H 95 06/23/17 07:46 06/23/17 07:46 06/23/17 07:46 06/23/17 07:46 06/23/17 07:46 Microbiology 06/20/17 14:00 Gram Stain - Final Knee - Aspirate Laboratory Results 06/21/17 11:50 06/21/17 04:40 06/22/17 06/23/17 06/24/17 05:59 05:59 05:59 Intake Total 150 50 Output Total 1000 700 Balance -850 -650 - Physical Exam Constitutional: no apparent distress, uncomfortable Eyes: PERRL Ears, Nose, Mouth, Throat: hearing normal Cardiovascular: irregularly irregular Respiratory: no respiratory distress Skin: warm, other (r leg w extensive swelling, ecchymosis on back side of the leg) Musculoskeletal: joint effusion (left knee) Neurologic: AAOx3 Psychiatric: interacting appropriately ICD10 Worksheet Patient Problems: Problems Problem Status Onset Cellulitis Acute
[2017-06-23] MEDS: predniSONE 20 MG TAB PO SCH (09:21)
[2017-06-23] MEDS: ALLOPURINOL 100 MG TAB PO SCH (09:21)
[2017-06-23] MEDS: OMEGA-3 FATTY ACIDS 1,000 MG CAP PO SCH (09:21)
[2017-06-23] MEDS: METOPROLOL SUCCINATE XR 100 MG TAB PO SCH (09:22)
[2017-06-23] MEDS: DIGOXIN 250 MCG TAB PO SCH (09:24)
[2017-06-23] MEDS: COLCHICINE 0.6 MG CAP/TAB PO PRN (10:21)
--- NOTE | 2017-06-23 12:08 | SOAPPROG ---
SOAP Progress Note Assessment/Plan: Assessment: He has a history of mild nonischemic cardiomyopathy, chronic (permanent) atrial fibrillation associated with a chads Vasc score of 3 and hypertension. He recently, he developed a right leg hematoma. This extends from the thigh down into the calf. This has been present now for a couple of weeks. This is the 1st episode of hematoma that he has experienced. He does not recall a trigger for this event or an injury. Had been on Eliquis which has now been held for several weeks. Fortunately, he feels that this condition is improving. He has also had a great deal of difficulty with gout. His atrial fibrillation is asymptomatic and nicely controlled on digoxin and metoprolol. I would recommend continuing these medications. With respect to his anticoagulation, I think it would be prudent to hold this medication for the time being. I would like to see his hematoma resolved a little bit more. I do think that we can restart anticoagulation within the next several weeks. His risk for stroke during the next several weeks is low given his overall annual risk for stroke of 3.2%. I would like him to follow up in our clinic within the next 2 weeks. At that point, we can reassess his hematoma and consider reinstitution of systemic anticoagulation. 06/23/17 12:09 Subjective: The patient was seen and examined. His chart was reviewed. He is typically followed as an outpatient by Dr. Manuel Lewis and nurse practitioner Elliott Perez. His cardiovascular history is significant for a mild nonischemic cardiomyopathy and hypertension. Additionally, he has permanent atrial fibrillation. His chads Vasc score is 3 (3.2% annual stroke risk). As result, historically, he has been maintained on systemic anticoagulation with Eliquis. He has been rate controlled with digoxin and metoprolol and is at his baseline asymptomatic. He recently, he has had a great deal of difficulty with gout. He was hospitalized at [facility] May 25 through the for gout. Was seen by Elliott Perez in our office a little over 2 weeks ago. At that time, due to the presence of a fairly large right lower extremity hematoma, his Eliquis was discontinued. He is currently hospitalized for pain control in the setting of his gout. He is currently on systemic steroids and apparently has had some improvement. He has had chronic pain related to his right lower extremity hematoma. In talking to him about this, he does not recall having injured the leg. He thinks that may have occurred spontaneously. He began to experience swelling in the right calf and eventually had ecchymoses and swelling in his right thigh. He has been seen by surgery who agree to manage him conservatively. He thinks that the swelling is improving as is the pain. He has not been taking his anticoagulant here. He has no history of stroke or DVT. Objective: Vital Signs Temp Pulse Resp BP Pulse Ox 36.6 C 70 16 124/77 H 95 06/23/17 07:46 06/23/17 09:24 06/23/17 07:46 06/23/17 09:22 06/23/17 07:46 Microbiology 06/20/17 14:00 Gram Stain - Final Knee - Aspirate Laboratory Results 06/21/17 11:50 06/21/17 04:40 06/22/17 06/23/17 06/24/17 05:59 05:59 05:59 Intake Total 150 50 Output Total 1000 700 200 Balance -850 -650 -200 Physical Exam - Physical Exam General Appearance: WD/WN, no apparent distress Neck: non-tender, full range of motion Respiratory: lungs clear, normal breath sounds Cardiac/Chest: irregularly irregular Peripheral Pulses: 2+: carotid (R), carotid (L) Abdomen: non-tender, soft Male Genitalia: deferred Rectal: deferred Extremities: other (He has an ecchymotic region extending on the lateral aspect of his thigh down into the lateral aspect of his calf. This is associated with some lower extremity edema with palpable lower extremity pulses.) ICD10 Worksheet Patient Problems: Problems Problem Status Onset Cellulitis Acute
[2017-06-23] MEDS: ACETAMINOPHEN 500 MG TAB PO SCH (21:33)
[2017-06-23] MEDS: ATORVASTATIN CALCIUM 10 MG TAB PO SCH (21:34)
[2017-06-23] MEDS: GABAPENTIN 300 MG CAP PO SCH (21:34)
[2017-06-24 05:27] LABS: HEMATOCRIT 30.8 % (40.0-51.0); HEMOGLOBIN 9.9 g/dL (13.7-17.5)
[2017-06-24 05:38] LABS: ANION GAP 8 mEq/L (8-16); CALCIUM 9.8 mg/dL (8.5-10.4); CARBON DIOXIDE 29 mEq/l (22-31); CHLORIDE 99 mEq/L (97-110); CREATININE 0.7 mg/dL (0.7-1.3); GLOMERULAR FILTRATION RATE > 60; GLUCOSE 117 mg/dL (70-100); POTASSIUM 4.5 mEq/L (3.5-5.2); SODIUM 136 mEq/L (134-144)
[2017-06-24 07:35] VITALS: BP 155/90; PULSE 72; RESP 16; TEMP 97.8; O2SAT 98
--- NOTE | 2017-06-24 08:34 | HOSPPROG ---
Hospitalist Progress Note Assessment/Plan: 72 y male with c/o rle redness. # RLE cellulitis - will treat with ancef and follow clinical course - much improved # RLE hematoma - culture from this negative so far - follow; holding eliquis -repeat US unchanged -ordered ice prn # L knee effusion/supratellar - gout less painful today - cont pred, colchicine and allopurinol - aspirated knee, + crystals - appreciate Dr Ventura # tachycardia - none today - hold lasix, stop fluids -follow # a-fib - cont metop, digoxin; hold eliquis # anemia trended down a bit, but stable #dvt prophylaxis: LMWH on hold/ has a significant hematoma on right leg area #Dispo -need SNF/ has been accepted to [facility]/ dc today Subjective: Thony is feeling better today. Objective: Vital Signs Temp Pulse Resp BP Pulse Ox 36.6 C 72 16 155/90 H 98 06/24/17 07:34 06/24/17 07:34 06/24/17 07:34 06/24/17 07:34 06/24/17 07:34 Microbiology 06/20/17 14:00 Gram Stain - Final Knee - Aspirate Laboratory Results 06/24/17 04:44 06/24/17 04:44 06/23/17 06/24/17 06/25/17 05:59 05:59 05:59 Intake Total 50 1250 Output Total 700 1500 Balance -650 -250 - Physical Exam Constitutional: no apparent distress, appears nourished Eyes: PERRL Ears, Nose, Mouth, Throat: hearing normal Cardiovascular: irregularly irregular Respiratory: no respiratory distress Gastrointestinal: normoactive bowel sounds Skin: other (r leg w less swelling/ slowly improving) Musculoskeletal: joint effusion (left knee w less swelling) Neurologic: AAOx3 Psychiatric: interacting appropriately, not anxious, flat affect ICD10 Worksheet Patient Problems: Problems Problem Status Onset Cellulitis Acute
[2017-06-24] MEDS: ALLOPURINOL 100 MG TAB PO SCH (08:58)
[2017-06-24] MEDS: OMEGA-3 FATTY ACIDS 1,000 MG CAP PO SCH (08:58)
[2017-06-24] MEDS: DIGOXIN 250 MCG TAB PO SCH (08:58)
[2017-06-24] MEDS: METOPROLOL SUCCINATE XR 100 MG TAB PO SCH (08:58)
[2017-06-24] MEDS: predniSONE 20 MG TAB PO SCH (08:58)
[2017-06-24] MEDS: COLCHICINE 0.6 MG CAP/TAB PO PRN (09:13)
--- NOTE | 2017-06-24 09:51 | PDIAF ---
- Diagnosis Diagnosis: R LE hematoma, cellulitis/ l knee effusion/gout Code Status: Full Code - Medication Management Discharge Medications: Medications to Continue on Transfer Allopurinol [Allopurinol 100 MG (*)] 100 mg PO DAILY 06/05/17 [Last Taken ] Atorvastatin Calcium [Lipitor 10 mg (*)] 10 mg PO HS 06/05/17 [Last Taken ] Furosemide [Lasix 40 MG (*)] 40 mg PO Q2D@06/05/17 [Last Taken 06/17/17] Gabapentin [Neurontin 300 MG (*)] 300 mg PO HS 06/05/17 [Last Taken 06/17/17] Losartan Potassium [Cozaar] 100 mg PO DAILY 06/05/17 [Last Taken 06/18/17] Metoprolol Succinate Xr [Toprol Xl 100 mg (*)] 100 mg PO DAILY 06/05/17 [Last Taken 06/18/17] Tadalafil [Cialis] 20 mg PO Q48H 06/05/17 [Last Taken 06/17/17] Acetaminophen [Tylenol ES 500 mg (*)] 1,000 mg PO HS 06/18/17 [Last Taken ] Colchicine [Colchicine (*)] 0.6 mg PO DAILY PRN 06/18/17 [Last Taken Unknown] Digoxin [Lanoxin 250 mcg (RX)] 250 mcg PO MOTUWETHFRSA@09 06/18/17 [Last Taken 06/18/17] Herbals/Supplements -Info Only 1 ea PO DAILY 06/18/17 [Last Taken Unknown] Multivitamins [Multivitamin (*)] 1 each PO DAILY 06/18/17 [Last Taken 06/18/17] [place]-3 Fatty Acids [Fish Oil 1000 mg (*)] 1,000 mg PO DAILY 06/18/17 [Last Taken Unknown] traMADol [Ultram 50 mg (*)] 50 mg PO Q4 PRN 06/18/17 [Last Taken Unknown] Cephalexin [Keflex (*)] 500 mg PO QID #8 06/24/17 [Last Taken Unknown] predniSONE 20 mg PO DAILY 8 Days tablet 06/24/17 [Last Taken Unknown] Discharge Medications: Refer to the Discharge Home Medication list for PRN reason. PICC Care - Routine: N/A - Orders Services needed: Physical Therapy, Occupational Therapy Diet Recommendation: no restrictions on diet Diet Texture: Regular Texture Diet Activity/Weight Bearing Restrictions: as tolerated Additional: Patient has atrial fibrillation. He is on Eliquis. This is on hold. He needs to see Cardiology in the next 2 weeks to further evaluate when this can be restarted. He can be seen by Dr. Tor Lewis or by Elliott Perez. Prednisone should be weaned off. This can be done over the next 6 days recommendation is 20 mg daily x3 days and then 10 mg daily x3 days. Continue Keflex for 2 more days and then discontinue - Labs/Radiology BMP Date: 07/01/17 CBC Date: 07/01/17 - Follow Up Care Current Providers and Referrals: Marsha Meza MD [Primary Care Provider] - As per Instructions Elliott Perez NP [Certified Nurse Practioner] -
--- NOTE | 2017-06-24 10:28 | ASMTCMCOM ---
CM Note CM Note Notes: D/w DINING ROOM COORDINATOR, final orders faxed. Lois at [facility] notified, apple picker at 1pm. RN to call report. Date Signed: 06/24/2017 10:27 AM Electronically Signed By:Maddison June RN
--- NOTE | 2017-06-24 11:00 | GDS ---
[f rep st] DISCHARGE SUMMARY DISCHARGE DIAGNOSES: 1. Right lower extremity cellulitis. 2. Right lower extremity hematoma. 3. Left knee effusion, suprapatellar, with associated gout. 4. Tachycardia. 5. Atrial fibrillation. 6. Anemia. CONSULTATIONS: 1. Dr. Elian Henriquez. 2. Dr. Mark Ventura. 3. Dr. Roger Millan. HISTORY: Briefly, the patient is a 72-year-old male with a history of gout. He presented to the emergency room with right lower extremity swelling and redness. He was discharged approximately 2 weeks ago from [facility] where he was treated for a gout attack with prednisone, colchicine, allopurinol. His gout somewhat resolved, but he noticed that his right leg became very swollen. He is on Eliquis. He had an ultrasound of his leg done 2 weeks ago, which showed a complex fluid collection. At that time, he was unsure if he had been on antibiotics, though Keflex was on his medication list. He was told by his digital media designer to stop Eliquis in the interim as there was concern of a hematoma. During his stay, he was evaluated by Dr. Elian Henriquez, surgeon, for evaluation of the right leg hematoma. He felt it was shrinking in size and unlikely to be driving the erythema. He did not think it needed any further drainage. In addition, because his left knee was so painful with the effusion, he was seen and evaluated by Dr. Mark Ventura with Orthopedics. His recommendation was to continue treatment for gout. He did not feel that he needed any other treatment. Subsequently, he was seen by Cardiology in regard to further discussion about when to restart the Eliquis. He will follow up with them in the next 2 weeks. HOSPITAL COURSE: 1. Right lower extremity cellulitis. This appears markedly improved. He was treated with Ancef. Will keep him on 2 more days of Keflex. 2. Right lower extremity hematoma. The culture from this is negative so far. His repeat ultrasound is unchanged. He will follow up with Cardiology as far as evaluation of this and when to restart his Eliquis. 3. Left knee effusion, suprapatellar. Also has gout. Better today. His knee was aspirated, which showed positive crystals. 4. Tachycardia, none today. 5. Atrial fibrillation. Well rate controlled on metoprolol and digoxin. 6. Anemia, overall stable. Will have this checked in 1 week. DISCHARGE CONDITION: Stable. Blood pressure is 155/90, O2 sats on room air 98% , respiratory rate is 16, heart rate 72, temperature 36.6 Celsius. DISCHARGE MEDICATIONS: Please see the EMR. DISCHARGE INSTRUCTIONS: 1. To follow up with Dr. Manuel Lewis or Elliott Perez for followup in regard to his hematoma and when to restart his Eliquis. 2. If he develops fever, chills, chest pain, or shortness of breath, return to the ER. Greater than 30 minutes discharging and coordinating his care. /[id number]/MODL MTDD
--- NOTE | 2017-06-25 11:30 | ASDISCHSUM ---
Discharge Information Plan Status:SNF Medically Cleared to Leave: Discharge Date:06/24/2017 01:20 PM CM D/C Disposition:Half-Way Facility ADT D/C Disposition:Half-Way Facility Projected Discharge Date:06/24/2017 01:00 PM Transportation at D/C:Wheelchair Van Discharge Delay Reason: Follow-Up Date:06/24/2017 01:00 PM Discharge Slot: Final Diagnosis: Placement Information Referral Type:*Mcfp/SNF Referral ID:[id number] Provider Name:[facility] Address 1:[address] Address 2: City:[place] Selection Factors: State:[place] Patient Contact Information Contact Name:MUNIRA Relationship:Daughter Address: City:[place] Alternate Phone: State/Zip Code:[place] [address] Email: Financial Information Financial Class:Medicare Advantage Plans Primary Plan Desc:[facility] [employer] Primary Plan Number:[id number] Secondary Plan Desc: Secondary Plan Number: Assessment Information [facility] CM Progress Note CM Note CM Note Notes: Pt. is a 72-year-old man admitted w/ R lower leg cellulitis. Hx. gout, Afib, and peripheral neuropathy. Pt. on IV antibiotics. Pt. appears to live alone, daughter listed in contacts. CM to follow for d/c needs. Date Signed: 06/19/2017 02:42 PM Electronically Signed By:Jocy Smith LCSW [facility] CM Progress Note CM Note CM Note Notes: Chart reviewed, per PT and OT, SNF/Rehab recommended, Met with patient to discuss dc poc. He understands he may need rehab when he is medically able to discharge and is agreeable to rehab. Patient provided options within [place] and surrounding area. He would like to go to [facility] in [place]. Referal to [facility] made awaiting response. CM will follow. Date Signed: 06/20/2017 03:24 PM Electronically Signed By:Paulina Allison RN [facility] CM Progress Note CM Note CM Note Notes: [facility] will not have a bed until the end of this week. CM recommended that pt selects another SNF facility as a safety net. Pt would like CM to make a referral to [facility]. CM faxed referral. CM provided pt information on [facility] as requested. Date Signed: 06/21/2017 01:45 PM Electronically Signed By:SUZIE Mcdowell [facility] SAMI Progress Note CM Note SAMI Note Notes: CM spoke w/ BLADIMIR Mckeon regarding d/c POC. CM spoke w/ Lois at [facility] and anticipates having a bed for pt when he is medically stable to d/c. Pt is agreeable to going to [facility]. Pt was declined at [facility] due to his insurance. CM to follow. Date Signed: 06/22/2017 12:12 PM Electronically Signed By:SUZIE Mcdowell [facility] CM Progress Note CM Note CM Note Notes: D/w FOOD RUNNER, final orders faxed. Lois at [facility] notified, cone picker at 1pm. RN to call report. Date Signed: 06/24/2017 10:27 AM Electronically Signed By:Maddison June RN Intervention Information Intervention Type:*IM-Signed Date of Service:06/24/2017 10:25 AM Patient Type:Inpatient Staff Member:Joaquina Martines Hours: Discipline: Severity: Comment:
== END 2017-06-24 13:20 | DRG 603 ==
LOC: EDUNIT# → F3E 14:39 → OBSVTOIN 06-19 13:47 → F3E 06-20 10:47
PROVIDERS: ADMIT Student in an Organized Health Care Education/Training Program; ATTEND Student in an Organized Health Care Education/Training Program
PROC: 0S9C3ZX Drainage of Right Knee Joint, Percutaneous Approach, Diagnostic (ICD-10-PCS; principal; 2017-06-19)
PROC: 0S9D3ZX Drainage of Left Knee Joint, Percutaneous Approach, Diagnostic (ICD-10-PCS; 2017-06-20)
DX: L03.115 Cellulitis of right lower limb (principal); M10.9 Gout, unspecified; S80.11XD Contusion of right lower leg, subsequent encounter; I48.91 Unspecified atrial fibrillation; G62.9 Polyneuropathy, unspecified; Z87.891 Personal history of nicotine dependence
CPT/HCPCS: 96365; 97116-GP; 97161-GP; 97165-GO; 97530-GO; 97530-GP; 97535-GO; G0378; G8978-GP-CK; G8979-GO-CJ; G8979-GP-CI; G8980-GO-CJ; G8980-GP-CJ; G8987-GO-CL; G8988-GO-CJ; J0690; J0696; J2405; J3010; J3370

== ENCOUNTER 2017-07-03 19:57 | Inpatient (IN) | payer OTHER ==
--- NOTE | 2017-07-03 20:03 | EDPHY ---
H & P Time Seen by Provider: 07/03/17 20:01 HPI/ROS: CHIEF COMPLAINT: Elevated white blood cell count HISTORY OF PRESENT ILLNESS: History and physical dated 06/18/2017 personally reviewed. He was admitted with right lower extremity cellulitis. 2 weeks prior to that he was at [place] for gout attack treated with prednisone and colchicine and allopurinol. At that time he was on Eliquis for atrial fibrillation. He was discharged on June 24 to rehab. Today he presents with elevated white blood cell count [id number] on the . The he tells me his legs are less swollen. He does not have chest pain or cough. He does not have urinary symptoms. His left knee has been hurting him more than usual. He thinks it might be his gout. REVIEW OF SYSTEMS: Eye: no change in vision ENT: no sore throat Cardiac: no chest pain or syncope Pulmonary: no cough or SOB Abdomen: no vomiting, diarrhea, abdominal pain Musculoskeletal: Bilateral leg edema which is getting better. Skin: Bruising on the right leg which is improving Neuro: no headache Constitutional: Subjective fever : no urinary symptoms A comprehensive 10 point review of systems is otherwise negative aside from elements mentioned in the history of present illness. PAST MEDICAL HISTORY: Includes atrial fibrillation, gout, peripheral neuropathy. Anemia, right lower extremity cellulitis. Social history: Arrives from [facility] rehab inpatient. Nonsmoker. General Appearance: Alert and conversant, cooperative. Eyes: No scleral icterus. ENT, Mouth: Normal mucous membranes. Respiratory: Normal respiratory effort, breath sounds equal, lungs are clear to auscultation. Cardiovascular: Irregular rate and rhythm heart rate 95. Gastrointestinal: Abdomen is soft and non tender. Neurological: Alert and oriented x3. Normally conversant. Face symmetric, normal movement and sensation in all extremities. Skin: Bruising on the right leg thigh and knee. Erythema on the dorsum of left foot, but no blisters or open wounds. Warm to the touch. No lymphangitis. Patient cannot tell me if this is a new finding or not. Musculoskeletal: Bilateral pedal edema. His left knee is painful to touch and palpation, but I can range it passively to flexion at 90 degrees and full extension. Compartments are soft in both thighs and calves. Bruising in the right thigh and calf. Some mild right calf tenderness. Psychiatric: Not agitated. Emergency Department course/MDM: Blood cultures, repeat CBC. Most recent 1 was 22,000 today. Chest x-ray urinalysis. Left knee arthrocentesis discussed the patient and consented, differential includes gout, infection. Standard sterile technique was used with 1 percent lidocaine anesthesia, and Left knee joint aspiration attempted, no fluid was able to be obtained from the joint. My suspicion is decreased for septic joint because I can passively range him to 90 degrees and full extension. Per the patient's record he is not currently on prednisone or other steroids. 2116: Chest x-ray shows no infiltrates. White blood cell count [id number]. I would most likely consider recurrent leg cellulitis with dorsum of the foot redness especially on the left foot, as well as knee pain. Plan to cover with IV antibiotics, orthopedic consultation tomorrow for the left knee. Admission to hospitalist service Dr. Abdul. Discussed with orthopedics Dr. Steve. Patient presents with tachycardia and elevated white blood cell count meeting sepsis criteria. Lactate 2.7. Plan for repeat lactate, 30 mL/kilos IV fluid bolus, broad-spectrum antibiotics to include ertapenem and vancomycin for soft tissue infection. Most likely source would be lower extremity cellulitis. Ultrasound bilateral lower extremities ordered since the patient is not on Eliquis since his discharge, evaluation for possibility of DVT or abscess. Repeat lactate decreased, not hypotensive in ED, not septic shock. Smoking Status: Former smoker Constitutional: Initial Vital Signs Temperature (C) 37.2 C 07/03/17 19:58 Heart Rate 106 H 07/03/17 19:58 Respiratory Rate 18 07/03/17 19:58 Blood Pressure 155/96 H 07/03/17 19:58 O2 Sat (%) 93 07/03/17 19:58 O2 Delivery Mode Room Air Allergies/Adverse Reactions: amoxicillin [Amoxicillin] Allergy (Mild, Verified 07/03/17 20:08) Rash Penicillins Allergy (Verified 07/03/17 20:08) Rash Home Medications: Medication Instructions Recorded Allopurinol [Allopurinol 100 MG 100 mg PO DAILY 06/05/17 (*)] Atorvastatin Calcium [Lipitor 10 10 mg PO HS 06/05/17 mg (*)] Furosemide [Lasix 40 MG (*)] 40 mg PO DAILY 06/05/17 Gabapentin [Neurontin 300 MG (*)] 300 mg PO HS 06/05/17 Losartan Potassium [Cozaar] 100 mg PO DAILY 06/05/17 Metoprolol Succinate Xr [Toprol Xl 100 mg PO DAILY 06/05/17 100 mg (*)] Tadalafil [Cialis] 20 mg PO Q48H 06/05/17 Colchicine [Colchicine (*)] 0.6 mg PO DAILY PRN 06/18/17 Digoxin [Lanoxin 250 mcg (RX)] 250 mcg PO MOTUWETHFRSA@09 06/18/17 Multivitamins [Multivitamin (*)] 1 each PO DAILY 06/18/17 [place]-3 Fatty Acids [Fish Oil 1000 1,000 mg PO DAILY 06/18/17 mg (*)] traMADol [Ultram 50 mg (*)] 50 mg PO Q4 PRN 06/18/17 Acetaminophen [Tylenol 325mg (*)] 650 mg PO Q4 PRN 07/03/17 Potassium Cl [Klor-Con 20 meq (*)] 20 meq PO DAILY 07/03/17 predniSONE [predniSONE TAPER] 1 each PO .EDIT DOSE INSTRUCT 07/03/17 Medical Decision Making - Diagnostics Imaging Results: Imaging Impressions Chest X-Ray 07/03/17 20:11 Impression: 1. Diffuse peribronchial thickening which could be related to bronchitis/ airways disease. 2. Additional findings as above. Consult/Admit Bed Type: [facility] 2135, [facility] 2141 will consult tomorrow AM Critical Care Time: Total critical care time exclusive of separate procedures is 35 minutes; organ system at risk is infectious. I ordered multiple diagnostics, reviewed old records, IV fluids and antibiotics, serial exams, discussion with hospitalist and orthopedics; to stabilize the patient and attempt to prevent worsening of his condition. - Data Points Laboratory Results: Laboratory Results 07/03/17 20:30 07/03/17 20:30 07/03/17 07/03/17 07/03/17 20:30 20:30 20:30 WBC RBC Hgb Hct MCV MCH MCHC RDW Plt Count MPV Neut % (Auto) Lymph % (Auto) [place] % (Auto) Eos % (Auto) Baso % (Auto) Nucleat RBC Rel Count Absolute Neuts (auto) Absolute Lymphs (auto) Absolute Monos (auto) Absolute Eos (auto) Absolute Basos (auto) Absolute Nucleated RBC Immature Gran % Immature Gran # PT 15.2 SEC H SEC (12.0-15.0) INR 1.20 H (0.83-1.16) APTT 26.1 SEC SEC (23.0-38.0) VBG Lactic Acid Sodium 133 mEq/L L mEq/L (134-144) Potassium 4.2 mEq/L mEq/L (3.5-5.2) Chloride 96 mEq/L L mEq/L (97-110) Carbon Dioxide 28 mEq/l mEq/l (22-31) Anion Gap 9 mEq/L mEq/L (8-16) BUN 22 mg/dL mg/dL (7-23) Creatinine 0.9 mg/dL mg/dL (0.7-1.3) Estimated GFR > 60 Glucose 177 mg/dL H mg/dL (70-100) Calcium 10.2 mg/dL mg/dL (8.5-10.4) Total Bilirubin 1.3 mg/dL mg/dL (0.1-1.4) Urine Color YELLOW Urine Appearance CLEAR Urine pH 6.0 (5.0-7.5) Ur Specific [place] 1.021 (1.002-1.030) Urine Protein 1+ H (NEGATIVE) Urine Ketones NEGATIVE (NEGATIVE) Urine Blood NEGATIVE (NEGATIVE) Urine Nitrate NEGATIVE (NEGATIVE) Urine Bilirubin NEGATIVE (NEGATIVE) Urine Urobilinogen 4.0 EU H EU (0.2-1.0) Ur Leukocyte Esterase NEGATIVE (NEGATIVE) Urine RBC 3-5 /hpf H /hpf (0-3) Urine WBC 1-3 /hpf /hpf (0-3) Ur Epithelial Cells TRACE /lpf /lpf (NONE-1+) Hyaline Casts 1-5 /lpf /lpf (0-1) Urine Mucus TRACE /lpf /lpf (NONE-1+) Urine Glucose 1+ H (NEGATIVE) 07/03/17 07/03/17 20:30 20:30 WBC 19.97 10^3/uL H 10^3/uL (3.80-9.50) RBC 3.97 10^6/uL L 10^6/uL (4.40-6.38) Hgb 12.1 g/dL L g/dL (13.7-17.5) Hct 36.0 % L % (40.0-51.0) MCV 90.7 fL fL (81.5-99.8) MCH 30.5 pg pg (27.9-34.1) MCHC 33.6 g/dL g/dL (32.4-36.7) RDW 15.0 % % (11.5-15.2) Plt Count 281 10^3/uL 10^3/uL (150-400) MPV 9.4 fL fL (8.7-11.7) Neut % (Auto) 81.1 % H % (39.3-74.2) Lymph % (Auto) 7.1 % L % (15.0-45.0) [place] % (Auto) 10.6 % % (4.5-13.0) Eos % (Auto) 0.4 % L % (0.6-7.6) Baso % (Auto) 0.1 % L % (0.3-1.7) Nucleat RBC Rel Count 0.0 % % (0.0-0.2) Absolute Neuts (auto) 16.21 10^3/uL H 10^3/uL (1.70-6.50) Absolute Lymphs (auto) 1.42 10^3/uL 10^3/uL (1.00-3.00) Absolute Monos (auto) 2.11 10^3/uL H 10^3/uL (0.30-0.80) Absolute Eos (auto) 0.08 10^3/uL 10^3/uL (0.03-0.40) Absolute Basos (auto) 0.02 10^3/uL 10^3/uL (0.02-0.10) Absolute Nucleated RBC 0.00 10^3/uL 10^3/uL (0-0.01) Immature Gran % 0.7 % % (0.0-1.1) Immature Gran # 0.13 10^3/uL H 10^3/uL (0.00-0.10) PT INR APTT VBG Lactic Acid 2.7 mmol/L H mmol/L (0.7-2.1) Sodium Potassium Chloride Carbon Dioxide Anion Gap BUN Creatinine Estimated GFR Glucose Calcium Total Bilirubin Urine Color Urine Appearance Urine pH Ur Specific [place] Urine Protein Urine Ketones Urine Blood Urine Nitrate Urine Bilirubin Urine Urobilinogen Ur Leukocyte Esterase Urine RBC Urine WBC Ur Epithelial Cells Hyaline Casts Urine Mucus Urine Glucose Medications Given: Gabapentin (Neurontin) 300 mg PO HS LÁZARO Stop: 12/30/17 22:29 Last Admin: 07/04/17 00:06 Dose: 300 mg Tramadol HCl (Ultram) 50 mg PO Q4 PRN PRN Reason: Pain, Moderate Stop: 12/30/17 22:08 Last Admin: 07/04/17 00:15 Dose: 50 mg Discontinued Medications Ertapenem 1 gm/ Sodium (Chloride) 100 mls @ 200 mls/hr IV EDNOW ONE PRN Reason: Protocol Stop: 07/03/17 21:49 Last Admin: 07/03/17 21:56 Dose: 100 mls Sodium Chloride (Ns) 3,100 mls @ 6,200 mls/hr 30 ml/kg infuse over 30 min ( 3100 ml) IV EDNOW ONE PRN Reason: Protocol Stop: 07/03/17 21:49 Last Admin: 07/03/17 21:37 Dose: 3,100 mls Vancomycin/Sodium Chloride (Vancomycin 1 Gm (Premix)) 250 mls @ 250 mls/hr IV EDNOW ONE PRN Reason: Protocol Stop: 07/03/17 22:20 Last Admin: 07/03/17 21:36 Dose: 250 mls Sodium Chloride (Ns) 1,000 mls @ 3,000 mls/hr IV ONCE ONE Stop: 07/03/17 21:55 Last Admin: 07/03/17 23:37 Dose: Not Given Departure - Departure Disposition: [facility] Inpatient Acute Clinical Impression: Cellulitis of left foot Leukocytosis Qualifiers: Leukocytosis type: unspecified Qualified Code(s): D72.829 - Elevated white blood cell count, unspecified Condition: Good
[2017-07-03 21:00] LABS: % IMMATURE GRANULYOCYTES 0.7 % (0.0-1.1); ABSOLUTE IMMATURE GRANULOCYTES 0.13 10^3/uL (0.00-0.10); ADD DIFF? NO; ADD MORPH? NO; ADD SCAN? NO; ATYPICAL LYMPHOCYTE FLAG 0 (0-99); FRAGMENT RBC FLAG 0 (0-99); HEMOGLOBIN 12.1 g/dL (13.7-17.5); LEFT SHIFT FLG 20 (0-99); LIPEMIA HEMOLYSIS FLAG 80 (0-99); MEAN CELL HEMOGLOBIN 30.5 pg (27.9-34.1); MEAN CELL HEMOGLOBIN CONCENTR. 33.6 g/dL (32.4-36.7); MEAN CELL VOLUME 90.7 fL (81.5-99.8); MEAN PLATELET VOLUME 9.4 fL (8.7-11.7); PLATELET CLUMPS FLAG 0 (0-99); PLATELET COUNT 281 10^3/uL (150-400); RED BLOOD CELL COUNT 3.97 10^6/uL (4.40-6.38)
[2017-07-03 21:09] LABS: INR 1.2 (0.83-1.16); PROTIME(PATIENT) 15.2 SEC (12.0-15.0)
[2017-07-03 21:10] LABS: APTT 26.1 SEC (23.0-38.0)
[2017-07-03 21:11] LABS: ANION GAP 9 mEq/L (8-16); BILIRUBIN,TOTAL 1.3 mg/dL (0.1-1.4); CALCIUM 10.2 mg/dL (8.5-10.4); CARBON DIOXIDE 28 mEq/l (22-31); CHLORIDE 96 mEq/L (97-110); CREATININE 0.9 mg/dL (0.7-1.3); GLOMERULAR FILTRATION RATE > 60; GLUCOSE 177 mg/dL (70-100); POTASSIUM 4.2 mEq/L (3.5-5.2); SODIUM 133 mEq/L (134-144)
[2017-07-03] MEDS ORDERED: NS 3,100 ML IV ONE (21:20)
[2017-07-03] MEDS ORDERED: ERTAPENEM 1 GM in NS 100 ML IV ONE (21:20)
[2017-07-03] MEDS ORDERED: VANCOMYCIN HCL/NORMAL SALINE 250 ML IV ONE (21:21)
[2017-07-03 21:26] LABS: COLOR YELLOW; LEUKOCYTE ESTERASE,URINE NEGATIVE (NEGATIVE); NITRITE,URINE NEGATIVE (NEGATIVE)
[2017-07-03 21:29] LABS: MUCUS TRACE /lpf (NONE-1+)
[2017-07-03] MEDS ORDERED: ACETAMINOPHEN 325 MG TAB PO PRN (21:36)
[2017-07-03] MEDS ORDERED: ONDANSETRON 4 MG/2 ML VIAL IVP PRN (21:36)
[2017-07-03] MEDS ORDERED: NS 1,000 ML IV ONE (21:36)
[2017-07-03] MEDS ORDERED: ONDANSETRON DISINTEGRATING 4 MG TAB PO PRN (21:36)
[2017-07-03 21:49] LABS: LACGHOST ORDER
[2017-07-03] MEDS ORDERED: COLCHICINE 0.6 MG CAP/TAB PO PRN (22:29)
--- NOTE | 2017-07-03 23:27 | GHP ---
[f rep st] HISTORY AND PHYSICAL DATE OF ADMISSION: 07/03/2017 CHIEF COMPLAINT: Left leg pain. HISTORY OF PRESENT ILLNESS: This is a 72-year-old male who has had recent complicated medical histor y, including a hospitalization from 06/19/2017 to 06/25/2017 with acute right lower extremity celluli tis with associated hematoma. The patient was treated for cellulitis. Had his anticoagulation stopp ed for hematoma and was additionally treated for acute gouty arthritis of the left knee. The patient was discharged to rehabilitation where he reports he has been making good progress. Actually gradua teja out of the wheelchair approximately 5 days ago and was able to take single flights of stairs with assist. He now reports in the last 24 hours markedly worse pain of the left knee with associated faith bjective fevers and chills, some fatigue. Denies any nausea, vomiting, abdominal pain, diarrhea. Roberson s limited passive range of motion of the left knee secondary to pain. Says he has had improved lower extremity edema over the course of the last 3-4 days with his increased activity level. Denies any palpitations, chest pain, shortness of breath, cough. PAST MEDICAL HISTORY: 1. Atrial fibrillation on Eliquis which has been held since his previous hospitalization and hematom a. 2. Gout. 3. Anemia. 4. Recent right lower extremity cellulitis, hematoma. 5. Chronic peripheral neuropathy. SOCIAL HISTORY: The patient is currently residing in a rehabilitation facility. Denies tobacco, alc ohol or illicit drugs. FAMILY HISTORY: Positive for gout in his daughter. REVIEW OF SYSTEMS: A 10-point Review of Systems is negative with the exception of that reported in t he HPI. PHYSICAL EXAMINATION: VITAL SIGNS: Blood pressure is 155/96, heart rate 110, respiratory rate 18, 9 3% on room air, 37.2. GENERAL: This is a healthy-appearing middle-aged male in no acute distress. HEENT: Notable for dry mucous membranes. Eyes: Negative for any Icterus. CARDIAC: Patient is irr egularly irregular and tachycardic. PULMONARY: Clear to auscultation bilaterally. GASTROINTESTINAL : Positive bowel sounds. Abdomen is soft and nontender in all 4 quadrants. MUSCULOSKELETAL: Patien jayden has 1+ lower extremity edema at the bilateral ankles and feet. There is mild swelling of the left knee with marked limited range of motion with passive movement of the left knee. The knee is warm to the touch. The left ankle is warm to the touch. SKIN: Notable for erythema of the dorsum of the l eft foot. A resolving large ecchymosis in the posterior thigh of the right leg as well as lower calf and ankle of the right leg. NEUROLOGIC: Patient is alert and oriented x3. PSYCHIATRIC: He is plea yuly and cooperative on interview and examination. DATA: White count 19.9, hematocrit 36.0 up from discharge 30.8, platelet count of 281. Creatinine i s 0.9. Sodium of 133. Crystal analysis from left knee tap on 06/20/2017. confirms uric acid crystal s. Chest x-ray which I personally reviewed and interpreted, shows no acute infiltrates or edema. ASSESSMENT AND PLAN: This is a 72-year-old male presenting with left knee pain and subjective fevers and chills. 1. Sepsis. Patient is tachycardic with a white count of nearly 20,000. Concern for a possible sept ic joint. The patient had blood cultures drawn from the emergency department. Is receiving aggressi ve fluid resuscitation and will receive empiric antibiotics for both cellulitis and septic arthritis. Attempted joint aspiration in the emergency department was unsuccessful for acquiring fluid. Ortho pedic Surgery has been consulted and will see the patient in the morning. 2. Acute left knee pain. Differential includes septic arthritis and/or gout flare. I think both ar e certainly possible based on his symptoms, exam, and laboratory. Will again continue intravenous va ncomycin for septic arthritis and will initiate a prednisone burst for possible gouty arthritis. Ort hopedics will reevaluate the patient in the morning and attempt fluid extraction again. Will order p hysical therapy, occupational therapy to continue the rehabilitation work with this patient that he i s already receiving. 3. Tachycardia. Patient is irregular on my exam, suspect related to his atrial fibrillation compoun ded by hypovolemia and potential sepsis. Will follow his heart rates after fluid resuscitation. Con tinue his outpatient rate control medications. We will continue to hold his Eliquis as well as he is only now recovering from his significant right lower extremity hematoma. 4. Hyponatremia. Suspect hypovolemic in nature. Will recheck after fluid resuscitation today. 5. Atrial fibrillation. As above, patient's ventricular rates are fast at presentation. Again, henry pect related to his acute presentation with either septic arthritis or gouty arthritis. We will flui d resuscitate, treat with antibiotics, and follow while on his normal home medications. 6. Hypertension. Patient's blood pressures are in the 130s to 150s at presentation. Will continue his outpatient medication for rate which includes metoprolol. Will hold his losartan and furosemide at admission until I have a better sense of his blood pressure trends in the setting of sepsis. 7. Peripheral neuropathy. Will continue his gabapentin. 8. Prophylaxis with Lovenox. 9. Diet regular. DISPOSITION: Expecting greater than 2 midnights as the patient is presenting with vital signs and la boratories consistent with sepsis, suspected related to possible joint infection. Will require ortho pedic consultation, antibiotics, and care. Discussed the case with the emergency room physician. Jhonny sanchez will be triaged to the medical-surgical floor for care. /[id number]/MODL
[2017-07-04] MEDS: GABAPENTIN 300 MG CAP PO SCH ×2 (00:06→20:59)
[2017-07-04] MEDS: traMADol 50 MG TAB PO PRN ×4 (00:15→21:02)
[2017-07-04 04:47] LABS: % IMMATURE GRANULYOCYTES 0.4 % (0.0-1.1); ABSOLUTE IMMATURE GRANULOCYTES 0.05 10^3/uL (0.00-0.10); ADD DIFF? NO; ADD MORPH? NO; ADD SCAN? NO; ATYPICAL LYMPHOCYTE FLAG 0 (0-99); FRAGMENT RBC FLAG 0 (0-99); HEMATOCRIT 33.6 % (40.0-51.0); LEFT SHIFT FLG 0 (0-99); LIPEMIA HEMOLYSIS FLAG 80 (0-99); MEAN CELL HEMOGLOBIN 29.6 pg (27.9-34.1); MEAN CELL HEMOGLOBIN CONCENTR. 32.7 g/dL (32.4-36.7); MEAN CELL VOLUME 90.3 fL (81.5-99.8); MEAN PLATELET VOLUME 9.1 fL (8.7-11.7); PLATELET CLUMPS FLAG 20 (0-99); PLATELET COUNT 214 10^3/uL (150-400); RED BLOOD CELL COUNT 3.72 10^6/uL (4.40-6.38); RED CELL DISTRIBUTION WIDTH 15.2 % (11.5-15.2)
[2017-07-04 05:00] LABS: ANION GAP 7 mEq/L (8-16); CALCIUM 9.7 mg/dL (8.5-10.4); CARBON DIOXIDE 25 mEq/l (22-31); CHLORIDE 102 mEq/L (97-110); CREATININE 0.8 mg/dL (0.7-1.3); GLOMERULAR FILTRATION RATE > 60; GLUCOSE 112 mg/dL (70-100); SODIUM 134 mEq/L (134-144)
--- NOTE | 2017-07-04 08:13 | PDMN ---
Medical Necessity Medical necessity: Patient meets INPT criteria per physician note and poss M- 605 Septic Arthritis (developed worsening L knee pain, fever, chills, fatigue in last 24 hrs while in rehab p recent hospitalization for RLE cellulitis w/ associated hematoma and gouty arthritis L knee. Leukocytosis/WBC > 19,000; lactic acidosis/2.7; ongoing tachycardia p initial treatment w/NS IV; anticipated LOS > 2 midnights for treatment sepsis/poss septic joint w/IV antibiotics, prednisone burst, ortho consult.
[2017-07-04] MEDS: MULTIVITAMINS 1 EACH TAB PO SCH (08:37)
[2017-07-04] MEDS: COLCHICINE 0.6 MG CAP/TAB PO SCH (08:37)
[2017-07-04] MEDS: OMEGA-3 FATTY ACIDS 1,000 MG CAP PO SCH (08:37)
[2017-07-04] MEDS: METOPROLOL SUCCINATE XR 100 MG TAB PO SCH (08:37)
[2017-07-04] MEDS: ALLOPURINOL 100 MG TAB PO SCH (08:37)
[2017-07-04] MEDS: predniSONE 20 MG TAB PO SCH (08:37)
--- NOTE | 2017-07-04 08:53 | GCON ---
[f rep st] CONSULTATION CHIEF COMPLAINT: Left knee pain, bilateral leg pain. HISTORY OF PRESENT ILLNESS: The patient is a 72-year-old gentleman with a history of recurrent gouty attacks. He was just recently admitted from 06/19 to 06/25 with acute right lower extremity celluli tis and associated hematoma. He had bilateral lower extremity cellulitis, left knee gouty arthritis. He was seen and evaluated at that time and treated conservatively. Ultimately, he was transferred to a rehab facility. He presented to the emergency department yesterday after 24 hours of increasing left knee pain, swelling. He had subjective fevers. No nausea or other subjective complaints. He has increased bilateral lower extremity pain as well. PAST MEDICAL HISTORY: Atrial fibrillation on Eliquis. Gout, anemia, right lower extremity celluliti s and hematoma, chronic peripheral neuropathy. REVIEW OF SYSTEMS: Negative for any chest pain, shortness of breath, belly pain, back pain, numbness , tingling, or other joint-related complaints. SOCIAL HISTORY: He came to the hospital from a rehab facility. Denies any tobacco or alcohol usage. OBJECTIVE: GENERAL: This is a healthy gentleman who is pleasant and cooperative with examination. VITAL SIGNS: Blood pressure is 145/88, pulse is 107, respiratory rate is 93% on 1 L. Temperature ma ximum is 37.3, temperature current is 37.2. HEENT: Normocephalic, atraumatic. EXTREMITIES: Bilate ral upper extremities are unremarkable. Bilateral lower extremities reveal diffuse ecchymosis over t he posterior thigh of his right lower extremity. He has 2+ pitting edema to both lower extremities. Ecchymosis over his calf musculature and tenderness in this area as well from the previous hematoma. He has chronic venous stasis changes and scaling of his skin to both lower extremities. There are no open wounds or sores. Left lower extremity demonstrates swelling at the knee with a moderate palp able effusion. He is tender but has active range of motion of 30 degrees of flexion-extension arc. He guards against any specific examination otherwise. No increased calf swelling or tenderness josse red to his right lower extremity. He has 2+ pitting edema. IMPRESSION: Left lower extremity gout. TREATMENT PLAN: I have recommended aspiration. This was performed under sterile technique. Approxi mately 50 cc of thin, yellow, synovial fluid, which was opaque and blood tinged, was aspirated. Appr oximately 10 cc of this was sent for Gram stain, culture, and analysis. I would treat him expectantl y with gouty management. We will follow the clinical results of his aspiration. He may be weightbea ring as tolerated. Range of motion as tolerated. /[id number]/MODL
[2017-07-04] MEDS ORDERED: COLCHICINE 0.6 MG CAP/TAB PO SCH (09:00)
[2017-07-04] MEDS ORDERED: ENOXAPARIN 40 MG/0.4 ML SYR SC SCH (09:00)
[2017-07-04 09:18] LABS: WBC, SYNOVIAL FLUID 22565 /mm3 (0-150)
[2017-07-04] MEDS: VANCOMYCIN 1.5 GM in D5W 250 ML IV SCH ×2 (09:36→20:59)
--- NOTE | 2017-07-04 10:26 | ASMTCASEMG ---
Living Arrangements What is your living Answers: Alone arrangement? Who do you live with? Type Of Residence What kind of residence do Answers: House you live in? Discharge Plan Comments Coordination Status Comments Notes: Chart reviewed and spoke w/ GEOVANNA Wong. Pt is a 72 y/o man admitted w/ left leg pain. Pt is currently on IV antibotics. Pt was recently hospitalized at [facility] from 06/19/17 to 06/25/17 for acute right lower extremity cellulitis associated w/ hematoma. Pt d/c to [facility] and will most likely return for rehab. PT/OT has been ordered and awaiting recommendions. CM to follow. Date Signed: 07/04/2017 10:25 AM Electronically Signed By:SUZIE Mcdowell
[2017-07-04] MEDS ORDERED: IPRATROPIUM/ALBUTEROL 3 ML DEYVIAL IH PRN (15:50)
--- NOTE | 2017-07-04 17:32 | HOSPPROG ---
Hospitalist Progress Note Assessment/Plan: Sepsis L knee pain - DDx septic arthropathy vs gout attack L Narvaez Cyst, s/p drainage Recurrent gout attacks Recent Cellulitis, resolved Peripheral edema Peripheral neuropathy AFib HTN -IV Abx. -Ortho consulted for swollen joint -did arthrocentesis and sent fluid for analysis, revealed inflammation. Cx pending. -Check uric acid level. -Resume home meds. -Check AM labs. -PT/OT -VTE ppx - stopped Lovenox for hematoma of leg. Pt may not tolerate SCDs w/ hematoma R leg, -Code status - Full. -Inpt status for >2 midnight anticipated stay. -This pt is new to me. Reviewed chart/records for this visit. Subj: Pt feels better today. L knee pain improved following arthrocentesis. Obj: VSS. Gen: NAD, alert and oriented. HEENT: EOMI, MMM. Neck: no JVD. CV: RRR, no MRG. Resp: CTAB no RRW. Abd: SND, nontender. MSK: normal muscle tone/bulk. Neuro: CN II-XII grossly intact. Psych: approp mood/affect. Heme/Lymph: +2 pitting edema b/l lower legs. Skin: No skin rash. Objective: Vital Signs Temp Pulse Resp BP Pulse Ox 36.8 C 90 16 144/95 H 94 07/04/17 15:33 07/04/17 17:12 07/04/17 17:12 07/04/17 15:33 07/04/17 17:12 Microbiology 07/04/17 08:30 Gram Stain - Final Knee - Aspirate Laboratory Results 07/04/17 04:28 07/04/17 04:28 07/03/17 07/04/17 07/05/17 05:59 05:59 05:59 Intake Total 3300 Balance 3300 PT 15.2 SEC (12.0-15.0) H 07/03/17 20:30 INR 1.20 (0.83-1.16) H 07/03/17 20:30 ICD10 Worksheet Patient Problems: Problems Problem Status Onset Cellulitis of left foot Acute Leukocytosis Acute Cellulitis Acute
[2017-07-04] MEDS: ATORVASTATIN CALCIUM 10 MG TAB PO SCH (20:59)
[2017-07-05 05:00] LABS: % IMMATURE GRANULYOCYTES 0.6 % (0.0-1.1); ABSOLUTE IMMATURE GRANULOCYTES 0.08 10^3/uL (0.00-0.10); ADD DIFF? NO; ADD MORPH? NO; ADD SCAN? NO; ATYPICAL LYMPHOCYTE FLAG 0 (0-99); FRAGMENT RBC FLAG 30 (0-99); HEMATOCRIT 33.1 % (40.0-51.0); HEMOGLOBIN 11.2 g/dL (13.7-17.5); LEFT SHIFT FLG 0 (0-99); LIPEMIA HEMOLYSIS FLAG 90 (0-99); MEAN CELL HEMOGLOBIN 30.4 pg (27.9-34.1); MEAN CELL HEMOGLOBIN CONCENTR. 33.8 g/dL (32.4-36.7); MEAN CELL VOLUME 89.9 fL (81.5-99.8); MEAN PLATELET VOLUME 9.1 fL (8.7-11.7); PLATELET CLUMPS FLAG 0 (0-99); PLATELET COUNT 263 10^3/uL (150-400); RED BLOOD CELL COUNT 3.68 10^6/uL (4.40-6.38); RED CELL DISTRIBUTION WIDTH 14.8 % (11.5-15.2)
[2017-07-05 05:11] LABS: ANION GAP 6 mEq/L (8-16); CALCIUM 10.2 mg/dL (8.5-10.4); CARBON DIOXIDE 27 mEq/l (22-31); CHLORIDE 101 mEq/L (97-110); CREATININE 0.8 mg/dL (0.7-1.3); GLOMERULAR FILTRATION RATE > 60; GLUCOSE 105 mg/dL (70-100); POTASSIUM 4.2 mEq/L (3.5-5.2); SODIUM 134 mEq/L (134-144); URIC ACID 5.1 mg/dL (3.5-8.5)
--- NOTE | 2017-07-05 07:05 | SOAPPROG ---
SOAP Progress Note Assessment/Plan: Assessment: left knee inflammation gout bilateral lower extremity cellulitis Plan: continue subj care no sx intervention for left knee await cx results continue iv abx 07/05/17 07:02 Subjective: better decreased pain improved movement Objective: Vital Signs Temp Pulse Resp BP Pulse Ox 36.7 C 96 14 137/93 H 95 07/05/17 04:00 07/05/17 04:00 07/05/17 04:00 07/05/17 04:00 07/05/17 04:00 Microbiology 07/04/17 08:30 Gram Stain - Final Knee - Aspirate Laboratory Results 07/05/17 04:15 07/05/17 04:15 07/04/17 07/05/17 07/06/17 05:59 05:59 05:59 Intake Total 3300 166 Output Total 300 Balance 3300 -134 PT 15.2 SEC (12.0-15.0) H 07/03/17 20:30 INR 1.20 (0.83-1.16) H 07/03/17 20:30 left knee mild swelling intact active knee flex and ext toes warm and pink 1+ pitting edema bilateral lower ext ICD10 Worksheet Patient Problems: Problems Problem Status Onset Cellulitis of left foot Acute Leukocytosis Acute Cellulitis Acute
[2017-07-05] MEDS ORDERED: NON-FORMULARY NEW DRUG (Losartan Potassium [Cozaar] 100 MG) PO SCH (09:00)
[2017-07-05] MEDS: traMADol 50 MG TAB PO PRN (09:23)
[2017-07-05] MEDS: OMEGA-3 FATTY ACIDS 1,000 MG CAP PO SCH (09:27)
[2017-07-05] MEDS: FUROSEMIDE 40 MG TAB PO SCH (09:27)
[2017-07-05] MEDS: POTASSIUM CL 20 MEQ TAB PO SCH (09:27)
[2017-07-05] MEDS: predniSONE 20 MG TAB PO SCH (09:28)
[2017-07-05] MEDS: ALLOPURINOL 100 MG TAB PO SCH (09:29)
[2017-07-05] MEDS: MULTIVITAMINS 1 EACH TAB PO SCH (09:29)
[2017-07-05] MEDS: DIGOXIN 250 MCG TAB PO SCH (09:29)
[2017-07-05] MEDS: COLCHICINE 0.6 MG CAP/TAB PO SCH (09:29)
[2017-07-05] MEDS: LOSARTAN POTASSIUM 50 MG TAB PO SCH (09:30)
[2017-07-05] MEDS: METOPROLOL SUCCINATE XR 100 MG TAB PO SCH (09:30)
[2017-07-05] MEDS: VANCOMYCIN 1.5 GM in D5W 250 ML IV SCH ×2 (10:55→21:12)
[2017-07-05] MEDS: HYDROCODONE/APAP 5/325 TAB PO PRN ×3 (11:12→21:12)
--- NOTE | 2017-07-05 14:18 | ASMTCMCOM ---
CM Note CM Note Notes: CM met w/ pt for dispo planning. Pt is agreeable to going back to [facility]. OT/PT are recommending SNF. Pt is currently on vancomycin. Isabel was in from [facility]. CM sent [facility] updates via [employer]. CM to follow. Date Signed: 07/05/2017 02:18 PM Electronically Signed By:SUZIE Mcdowell
--- NOTE | 2017-07-05 15:14 | HOSPPROG ---
Hospitalist Progress Note Assessment/Plan: This is a 72-year-old male presenting with left knee pain and subjective fevers and chills. # Sepsis- ( tachycardic and white count of nearly 20,000) Concern for a possible septic joint. The patient had blood cultures drawn from the emergency department. CXR (personally reviewed and interpreted) no acute infiltrates or edema - oxygen saturations 92% on 2L Received aggressive fluid resuscitation and will receive empiric antibiotics for both cellulitis and septic arthritis Joint aspiration -positive for uric acid crystals - cont IV abx for cellulitis - pt taking adequate PO # Acute left knee pain 2/2 gout - will discuss antibiotic choices with orthopedics but coverage for septic joint likely not necessary now. - cont prednisone - cont colchicine - cont allopurinol # Tachycardia - resolved after fluid resuscitation - cont metoprolol # Hyponatremia- resolved after fluid resuscitation - 134 this am - cont to monitor # Atrial fibrillation. As above, patient's ventricular rates normalized - cont metoprolol - cont hold eliquis for his recent hematoma - cards will resume in outpt setting # Hypertension. Patient's blood pressures are in the 130s to 150s- - cont home meds # Peripheral neuropathy. Will continue his gabapentin. # Prophylaxis with Lovenox. # Diet regular. # DISPOSITION: Expecting greater than 2 midnights as the patient is presenting with vital signs and laboratories consistent with sepsis, suspected related to possible joint infection. Will require orthopedic consultation, antibiotics, and care. I Discussed the case with the RN - will work an ambulating to day to mobilize edema - lasix PO resumed Subjective: pain slightly improved Objective: Vital Signs Temp Pulse Resp BP Pulse Ox 36.8 C 96 18 156/94 H 92 07/05/17 11:10 07/05/17 11:10 07/05/17 11:10 07/05/17 11:10 07/05/17 11:10 Microbiology 07/04/17 08:30 Gram Stain - Final Knee - Aspirate Laboratory Results 07/05/17 04:15 07/05/17 04:15 07/04/17 07/05/17 07/06/17 05:59 05:59 05:59 Intake Total 3300 166 Output Total 300 Balance 3300 -134 PT 15.2 SEC (12.0-15.0) H 07/03/17 20:30 INR 1.20 (0.83-1.16) H 07/03/17 20:30 - Physical Exam Constitutional: appears nourished Eyes: anicteric sclera Ears, Nose, Mouth, Throat: moist mucous membranes Cardiovascular: irregularly irregular Respiratory: no respiratory distress Gastrointestinal: normoactive bowel sounds Genitourinary: no bladder fullness Skin: normal color Musculoskeletal: No asymmetric calves Neurologic: AAOx3 Psychiatric: interacting appropriately Lymph, Heme, Immunologic: no cervical LAD ICD10 Worksheet Patient Problems: Problems Problem Status Onset Cellulitis of left foot Acute Leukocytosis Acute Cellulitis Acute
[2017-07-05] MEDS: GABAPENTIN 300 MG CAP PO SCH (21:12)
[2017-07-05] MEDS: ATORVASTATIN CALCIUM 10 MG TAB PO SCH (21:12)
[2017-07-06 05:22] LABS: HEMATOCRIT 33.1 % (40.0-51.0); HEMOGLOBIN 10.7 g/dL (13.7-17.5); MEAN CELL HEMOGLOBIN 29.3 pg (27.9-34.1); MEAN CELL HEMOGLOBIN CONCENTR. 32.3 g/dL (32.4-36.7); MEAN CELL VOLUME 90.7 fL (81.5-99.8); RED BLOOD CELL COUNT 3.65 10^6/uL (4.40-6.38); RED CELL DISTRIBUTION WIDTH 14.6 % (11.5-15.2)
[2017-07-06 05:35] LABS: ANION GAP 5 mEq/L (8-16); CALCIUM 10.2 mg/dL (8.5-10.4); CARBON DIOXIDE 28 mEq/l (22-31); CHLORIDE 101 mEq/L (97-110); CREATININE 0.7 mg/dL (0.7-1.3); GLOMERULAR FILTRATION RATE > 60; GLUCOSE 120 mg/dL (70-100); POTASSIUM 4.2 mEq/L (3.5-5.2); SODIUM 134 mEq/L (134-144)
--- NOTE | 2017-07-06 08:24 | SOAPPROG ---
SOAP Progress Note Assessment/Plan: Assessment: left knee inflammation gout bilateral lower extremity cellulitis Plan: continue subj care no sx intervention for left knee await cx results january d/c abx for left knee, no acute infection symptoms clinically improving f/u with ortho for worsening symptoms 07/05/17 07:02 07/06/17 08:20 Subjective: improving decreased pain increased mobility Objective: Vital Signs Temp Pulse Resp BP Pulse Ox 36.3 C 75 20 137/87 H 96 07/06/17 07:07 07/06/17 07:07 07/06/17 07:07 07/06/17 07:07 07/06/17 07:07 Microbiology 07/04/17 08:30 Gram Stain - Final Knee - Aspirate Laboratory Results 07/06/17 04:22 07/06/17 04:39 07/05/17 07/06/17 07/07/17 05:59 05:59 05:59 Intake Total 166 1170 Output Total 300 1200 Balance -134 -30 PT 15.2 SEC (12.0-15.0) H 07/03/17 20:30 INR 1.20 (0.83-1.16) H 07/03/17 20:30 left knee swelliing diminished active rom with guarding intact pf,df,ehl toes warm and pink ICD10 Worksheet Patient Problems: Problems Problem Status Onset Cellulitis of left foot Acute Leukocytosis Acute Cellulitis Acute
[2017-07-06] MEDS ORDERED: INDOMETHACIN 25 MG CAP PO ONE (08:50)
[2017-07-06] MEDS: COLCHICINE 0.6 MG CAP/TAB PO SCH (09:03)
[2017-07-06] MEDS: DIGOXIN 250 MCG TAB PO SCH (09:03)
[2017-07-06] MEDS: MULTIVITAMINS 1 EACH TAB PO SCH (09:03)
[2017-07-06] MEDS: ALLOPURINOL 100 MG TAB PO SCH (09:03)
[2017-07-06] MEDS: FUROSEMIDE 40 MG TAB PO SCH (09:04)
[2017-07-06] MEDS: LOSARTAN POTASSIUM 50 MG TAB PO SCH (09:04)
[2017-07-06] MEDS: METOPROLOL SUCCINATE XR 100 MG TAB PO SCH (09:04)
[2017-07-06] MEDS: OMEGA-3 FATTY ACIDS 1,000 MG CAP PO SCH (09:04)
[2017-07-06] MEDS: POTASSIUM CL 20 MEQ TAB PO SCH (09:04)
[2017-07-06] MEDS: VANCOMYCIN 1.5 GM in D5W 250 ML IV SCH (10:15)
[2017-07-06] MEDS: HYDROCODONE/APAP 5/325 TAB PO PRN (11:41)
[2017-07-06] MEDS: INDOMETHACIN 25 MG CAP PO SCH ×2 (14:00→22:05)
--- NOTE | 2017-07-06 17:11 | HOSPPROG ---
Hospitalist Progress Note Assessment/Plan: This is a 72-year-old male presenting with left knee pain and subjective fevers and chills. # Sepsis- resolved ( tachycardic and white count of nearly 20,000) Concern for a possible septic joint. CXR (personally reviewed and interpreted) no acute infiltrates or edema - oxygen saturations 92% on RA - pt received appropriate empiric abx - CX NGTD # Acute left knee pain 2/2 gout - will discuss antibiotic choices with orthopedics but coverage for septic joint likely not necessary now. - start indomethacin as only minimal response to prednisone - cont colchicine - dc IV abx # Tachycardia - resolved after fluid resuscitation - cont metoprolol # Hyponatremia- resolved after fluid resuscitation - 134 this am - cont to monitor # Atrial fibrillation. As above, patient's ventricular rates normalized - cont metoprolol - cont hold eliquis for his recent hematoma - cards will resume in outpt setting # Hypertension. Patient's blood pressures are in the 130s to 150s- - cont home meds # Peripheral neuropathy. Will continue his gabapentin. # Prophylaxis - pt ambulating - avoided lovenox 2/2 his recent severe hematoma # Diet regular. # DISPOSITION: Expecting greater than 2 midnights as the patient is presenting with vital signs and laboratories consistent with sepsis, suspected related to possible joint infection. Will require orthopedic consultation, antibiotics, and care. I Discussed the case with the RN - starting indomethacin instead of prednisone - plan for dc tomorrow if continues to improve Subjective: improved ROM Objective: Vital Signs Temp Pulse Resp BP Pulse Ox 36.9 C 84 20 132/77 H 92 07/06/17 15:03 07/06/17 15:03 07/06/17 15:03 07/06/17 15:03 07/06/17 15:03 Microbiology 07/04/17 08:30 Gram Stain - Final Knee - Aspirate Laboratory Results 07/06/17 04:22 07/06/17 04:39 07/05/17 07/06/17 07/07/17 05:59 05:59 05:59 Intake Total 166 1170 550 Output Total 300 1200 Balance -134 -30 550 PT 15.2 SEC (12.0-15.0) H 07/03/17 20:30 INR 1.20 (0.83-1.16) H 07/03/17 20:30 - Physical Exam Constitutional: appears nourished Eyes: anicteric sclera Ears, Nose, Mouth, Throat: moist mucous membranes Cardiovascular: irregularly irregular Respiratory: no respiratory distress Gastrointestinal: normoactive bowel sounds Genitourinary: no bladder fullness Skin: normal color Musculoskeletal: No asymmetric calves Neurologic: AAOx3 Psychiatric: interacting appropriately Lymph, Heme, Immunologic: no cervical LAD ICD10 Worksheet Patient Problems: Problems Problem Status Onset Cellulitis of left foot Acute Leukocytosis Acute Cellulitis Acute
[2017-07-06] MEDS: ATORVASTATIN CALCIUM 10 MG TAB PO SCH (22:05)
[2017-07-06] MEDS: DOXYCYCLINE HYCLATE 100 MG CAP/TAB PO SCH (22:05)
[2017-07-06] MEDS: GABAPENTIN 300 MG CAP PO SCH (22:06)
[2017-07-07 04:58] LABS: HEMATOCRIT 34.7 % (40.0-51.0); HEMOGLOBIN 11.3 g/dL (13.7-17.5); MEAN CELL HEMOGLOBIN 29.5 pg (27.9-34.1); MEAN CELL HEMOGLOBIN CONCENTR. 32.6 g/dL (32.4-36.7); MEAN CELL VOLUME 90.6 fL (81.5-99.8); RED BLOOD CELL COUNT 3.83 10^6/uL (4.40-6.38); RED CELL DISTRIBUTION WIDTH 14.6 % (11.5-15.2)
[2017-07-07 05:10] LABS: ANION GAP 10 mEq/L (8-16); CARBON DIOXIDE 26 mEq/l (22-31); CHLORIDE 104 mEq/L (97-110); CREATININE 0.8 mg/dL (0.7-1.3); GLOMERULAR FILTRATION RATE > 60; GLUCOSE 125 mg/dL (70-100); POTASSIUM 4.2 mEq/L (3.5-5.2); SODIUM 140 mEq/L (134-144)
[2017-07-07 08:19] VITALS: PULSE 81; RESP 18; TEMP 97.5; O2SAT 95
--- NOTE | 2017-07-07 08:49 | PDIAF ---
- Diagnosis Diagnosis: gout Code Status: Full Code - Medication Management Discharge Medications: Medications to Continue on Transfer Allopurinol [Allopurinol 100 MG (*)] 100 mg PO DAILY 06/05/17 [Last Taken ] Atorvastatin Calcium [Lipitor 10 mg (*)] 10 mg PO HS 06/05/17 [Last Taken ] Furosemide [Lasix 40 MG (*)] 40 mg PO DAILY 06/05/17 [Last Taken 07/03/17] Gabapentin [Neurontin 300 MG (*)] 300 mg PO HS 06/05/17 [Last Taken 07/02/17] Losartan Potassium [Cozaar] 100 mg PO DAILY 06/05/17 [Last Taken 07/03/17] Metoprolol Succinate Xr [Toprol Xl 100 mg (*)] 100 mg PO DAILY 06/05/17 [Last Taken 07/03/17] Tadalafil [Cialis] 20 mg PO Q48H 06/05/17 [Last Taken 06/17/17] Colchicine [Colchicine (*)] 0.6 mg PO DAILY PRN 06/18/17 [Last Taken Unknown] Digoxin [Lanoxin 250 mcg (RX)] 250 mcg PO MOTUWETHFRSA@09 06/18/17 [Last Taken 07/03/17] Multivitamins [Multivitamin (*)] 1 each PO DAILY 06/18/17 [Last Taken 07/03/17] Drumright-3 Fatty Acids [Fish Oil 1000 mg (*)] 1,000 mg PO DAILY 06/18/17 [Last Taken 07/03/17] traMADol [Ultram 50 mg (*)] 50 mg PO Q4 PRN 06/18/17 [Last Taken Unknown] Acetaminophen [Tylenol 325mg (*)] 650 mg PO Q4 PRN 07/03/17 [Last Taken 07/03/17 ] Potassium Cl [Klor-Con 20 meq (*)] 20 meq PO DAILY 07/03/17 [Last Taken 07/03/17 ] Doxycycline Hyclate [Vibramycin 100 MG (*)] 100 mg PO BID #6 capsule 07/07/17 [ Last Taken Unknown] Hydrocodone/APAP 5/325 [[place] 5/325 (*)] 1 tab PO Q4HRS PRN tab 07/07/17 [Last Taken Unknown] Indomethacin [Indocin 25 mg (*)] 25 mg PO TIDMEAL #9 cap 07/07/17 [Last Taken Unknown] Discharge Medications: Refer to the Discharge Home Medication list for PRN reason. - Orders Services needed: Registered Nurse, Physical Therapy, Occupational Therapy Diet Recommendation: cardiac -low fat low salt Diet Texture: Regular Texture Diet - Follow Up Care Current Providers and Referrals: Perfecto Steve MD [Medical Doctor] -
[2017-07-07] MEDS: LOSARTAN POTASSIUM 50 MG TAB PO SCH (09:07)
[2017-07-07] MEDS: POTASSIUM CL 20 MEQ TAB PO SCH (09:07)
[2017-07-07] MEDS: METOPROLOL SUCCINATE XR 100 MG TAB PO SCH (09:08)
[2017-07-07] MEDS: ALLOPURINOL 100 MG TAB PO SCH (09:08)
[2017-07-07] MEDS: COLCHICINE 0.6 MG CAP/TAB PO SCH (09:08)
[2017-07-07] MEDS: OMEGA-3 FATTY ACIDS 1,000 MG CAP PO SCH (09:08)
[2017-07-07] MEDS: FUROSEMIDE 40 MG TAB PO SCH (09:08)
[2017-07-07] MEDS: INDOMETHACIN 25 MG CAP PO SCH ×2 (09:08→12:43)
[2017-07-07] MEDS: MULTIVITAMINS 1 EACH TAB PO SCH (09:09)
[2017-07-07] MEDS: DIGOXIN 250 MCG TAB PO SCH (09:09)
[2017-07-07] MEDS: DOXYCYCLINE HYCLATE 100 MG CAP/TAB PO SCH (09:09)
[2017-07-07 10:26] VITALS: BP 141/87
--- NOTE | 2017-07-07 11:42 | ASMTCMCOM ---
CM Note CM Note Notes: D/w RN, final orders faxed. [facility], Lois carbajal, GEOVANNA to call report. Date Signed: 07/07/2017 11:40 AM Electronically Signed By:Maddison June RN
--- NOTE | 2017-07-07 14:05 | GDS ---
[f rep st] DISCHARGE SUMMARY DISCHARGE DIAGNOSES: 1. Acute gouty arthritis of the left knee. 2. Cellulitis of the left leg, lower. 3. Sepsis, presumed initially secondary to septic joint versus cellulitis. 4. Tachycardia secondary to sepsis. 5. Hypovolemic hyponatremia. 6. Atrial fibrillation. 7. Hypertension. 8. Recent hematoma of the right lower extremity. Chronic anticoagulation on hold. HISTORY OF PRESENT ILLNESS: A 72-year-old male with a recent hospitalization for cellulitis of the r ight leg and subsequent gout of the left knee, who re-presents with recurrent pain of the left knee a fter a short period of time at rehabilitation. For details of patient's initial presentation, please see the history and physical dated 07/03/2017. CONSULTATIVE SERVICES: Include Orthopedic Surgery, Dr. Steve. PROCEDURES: On 07/04/2017, patient had arthrocentesis performed by Dr. Steve. On 07/03/2017, teresa nt had an ultrasound of the bilateral lower extremities, which showed no evidence of DVT. HOSPITAL COURSE BY ISSUE: 1. Acute painful right knee. After arthrocentesis and fluid analysis, patient was found to have uri c acid crystals. He was initially treated for septic arthritis until fluid analysis was available. Patient had IV antibiotics discontinued and was continued to be treated for acute gouty arthritis. Nunu e received 3 days of prednisone burst with minimal response in pain and mobility. We switched to ind omethacin the day before disposition. He had a more prompt response to this medication. He will be discharged on 3 additional days burst of indomethacin and then continue on his daily allopurinol. 2. Left lower extremity cellulitis. Patient did present with clear cellulitis of the dorsum of the foot and lower leg. Received IV antibiotics with vancomycin, which were transitioned to doxycycline, and he will continue a full 7-day course at his rehabilitation center. 3. Atrial fibrillation. Patient presented tachycardic, received fluid resuscitation with resolution of his rapid rate. He is continued on his rate control medications at his outpatient doses. 4. Sepsis. Patient presented with tachycardia and leukocytosis. On the day of disposition, his whi te count is normal, and his tachycardia has resolved. 5. Atrial fibrillation. Patient is having his novel anticoagulant held since his recent hematoma. We have instructed him follow with his vocational nursing instructor per his previous plan for re-initiation of this a s we believe he is moving time long enough from hematoma for safe re-initiation in the outpatient set ting. MEDICATIONS AT THE TIME OF DISPOSITION: Please reference med rec printed on 07/07/2017. PENDING STUDIES: At the time of this dictation include blood cultures, as well as knee aspirate cult ures, which are preliminary no growth to date at the time of this dictation. Patient will follow robert Steev in the outpatient setting as needed, as well as with his outpatient vocational nursing instructor in the next 1-2 weeks to discuss re-initiation of his blood thinners, as well as up titration of his outpati ent Lasix dosing, which we did not want to do with concurrent use of indomethacin. TIME SPENT: I spent greater than 30 minutes in the planning and coordination of this discharge. /[id number]/MODL
--- NOTE | 2017-07-07 14:52 | ASDISCHSUM ---
Discharge Information Plan Status:SNF Medically Cleared to Leave: Discharge Date:07/07/2017 02:05 PM D/C Disposition:Assisted Facility ADT D/C Disposition:Other Rehab, Not [facility] Projected Discharge Date:07/07/2017 02:00 PM Transportation at D/C:Wheelchair Van Discharge Delay Reason: Follow-Up Date:07/07/2017 02:00 PM Discharge Slot: Final Diagnosis: Placement Information Referral Type:*Retirement/SNF Referral ID:[facility]-[id number] Provider Name:[facility] Address 1:[address] Address 2: City:[place] Selection Factors: State:[place] Patient Contact Information Contact Name:MUNIRA Relationship:Daughter Address: City:[place] Alternate Phone: State/Zip Code:[place] [address] Email: Financial Information Financial Class:Medicare Advantage Plans Primary Plan Desc:[facility] [employer] Primary Plan Number:[id number] Secondary Plan Desc: Secondary Plan Number: Assessment Information [facility] Initial CM Assessment Living Arrangements What is your living Answers: Alone arrangement? Who do you live with? Type Of Residence What kind of residence do Answers: House you live in? Discharge Plan Comments Coordination Status Comments Notes: Chart reviewed and spoke w/ GEOVANNA Wong. Pt is a 72 y/o man admitted w/ left leg pain. Pt is currently on IV antibotics. Pt was recently hospitalized at [facility] from 06/19/17 to 06/25/17 for acute right lower extremity cellulitis associated w/ hematoma. Pt d/c to [facility] and will most likely return for rehab. PT/OT has been ordered and awaiting recommendions. CM to follow. Date Signed: 07/04/2017 10:25 AM Electronically Signed By:SUZIE Mcdowell [facility] Progress Note CM Note CM Note Notes: CM met w/ pt for dispo planning. Pt is agreeable to going back to [facility]. OT/PT are recommending SNF. Pt is currently on vancomycin. Isabel was in from [facility]. CM sent [facility] updates via [employer]. CM to follow. Date Signed: 07/05/2017 02:18 PM Electronically Signed By:SUZIE Mcdowell [facility] CM Progress Note CM Note CM Note Notes: D/w RN, final orders faxed. Pt will be picked up by [facility] rehab at 1:30, Lois carbajal RN to call report. Date Signed: 07/07/2017 11:40 AM Electronically Signed By:Maddison June RN Intervention Information Intervention Type:*IM-Signed Date of Service:07/07/2017 09:42 AM Patient Type:Inpatient Staff Member:Joaquina Martines Hours: Discipline: Severity: Comment:
== END 2017-07-07 14:05 | DRG 872 ==
LOC: EDUNIT# → F3E 23:47
PROVIDERS: ADMIT Hospitalist; ATTEND Hospitalist
PROC: 0SJD3ZZ Inspection of Left Knee Joint, Percutaneous Approach (ICD-10-PCS; 2017-07-03)
PROC: 0S9D3ZX Drainage of Left Knee Joint, Percutaneous Approach, Diagnostic (ICD-10-PCS; principal; 2017-07-04)
DX: A41.9 Sepsis, unspecified organism (principal); M10.9 Gout, unspecified; L03.116 Cellulitis of left lower limb; E87.1 Hypo-osmolality and hyponatremia; M71.22 Synovial cyst of popliteal space [Baker], left knee; I48.91 Unspecified atrial fibrillation; I10 Essential (primary) hypertension; G62.9 Polyneuropathy, unspecified; Z79.01 Long term (current) use of anticoagulants
CPT/HCPCS: 96374; 97116-GP; 97161-GP; 97165-GO; 97535-GO; G8978-GP-CL; G8979-GP-CJ; G8987-GO-CM; G8988-GO-CJ; J1335; J1650; J3370